=== PATIENT | male | born 1970 | race Caucasian/White ===

== ENCOUNTER 2016-06-02 21:51 | Inpatient (IN) | payer MEDICARE ==
[~2016-06-02] VITALS: Ht 190.5 cm; Wt 69.9 kg
[2016-06-02] MEDS ORDERED: ACETAMINOPHEN ES 500 MG TABLET PO ONE (22:30)
[2016-06-02] MEDS ORDERED: LEVOFLOXACIN 750MG/D5W 150 ML IV ONE ×2 (22:30→22:54)
[2016-06-02] MEDS ORDERED: IV NORMAL SALINE 1000 ML BAG IV ONE (22:30)
[2016-06-02] MEDS ORDERED: CEFT1VIA15 IV (22:50)
[2016-06-02] MEDS ORDERED: FURO-152 PO (22:50)
[2016-06-02] MEDS ORDERED: APIX2.5T PO (22:50)
[2016-06-02] MEDS ORDERED: ACET325T53 PO (22:50)
[2016-06-02] MEDS ORDERED: METO25TA6 PO (22:50)
[2016-06-02] MEDS ORDERED: AMIO200T2 PO (22:50)
[2016-06-02] MEDS ORDERED: ACETAMINOPHEN ES 500 MG TABLET ONE (22:53)
[2016-06-02 23:10] LABS: MEAN CORPUSCULAR VOLUME 78.5 fL (82.0-92.0)
[2016-06-02 23:11] LABS: LACTIC ACID 1.1 mmol/L (0.4-2.0); TROPONIN I 0.077 ng/mL (0.00-0.056)
[2016-06-02] MEDS ORDERED: ACET325C PO (23:11)
[2016-06-02] MEDS ORDERED: ASCO-340 PO (23:11)
[2016-06-02] MEDS ORDERED: VANC125C11 PO (23:11)
[2016-06-02] MEDS ORDERED: ZINC220C8 PO (23:11)
[2016-06-02] MEDS ORDERED: MULT-30 PO (23:11)
[2016-06-02] MEDS ORDERED: ASPI81TA31 PO (23:11)
[2016-06-02] MEDS ORDERED: LACT1CAP39 PO (23:11)
[2016-06-02] MEDS ORDERED: AZIT500V13 IV (23:11)
[2016-06-02] MEDS ORDERED: ARGI1POW13 PO (23:11)
[2016-06-02 23:13] LABS: MEAN CORPUSCULAR HEMOGLOBIN 26.2 uug (27.0-31.0); MEAN CORPUSCULAR HGB CONC 33 g/dL (32.0-37.0); PLATELET COUNT (AUTO) 348 K/uL (150-450); RED BLOOD CELL COUNT(AUTO) 2.57 MIL/uL (4.70-6.10); RED CELL DISTRIBUTION WIDTH 18.7 % (11.5-14.5)
[2016-06-02 23:15] LABS: ALBUMIN 1.8 g/dL (3.4-5.0); BILIRUBIN,DIRECT 0.1 mg/dL (0.0-0.2); BILIRUBIN,TOTAL 0.3 mg/dL (0.2-1.0); CALCIUM 7.9 mg/dL (8.5-10.1); CREATININE 1.1 mg/dL (0.6-1.3); POTASSIUM 4.8 mmol/L (3.5-5.1); TOTAL PROTEIN, SERUM 5.6 g/dL (6.4-8.2)
[2016-06-02 23:27] LABS: HEMATOCRIT 20.2 % (40.0-50.0); HEMOGLOBIN 6.7 g/dL (14.0-18.0); WHITE BLOOD COUNT (AUTO) 1.1 K/uL (4.0-11.2)
[2016-06-02 23:34] LABS: LYMPHOCYTES % (MANUAL) 63 % (20-40); MONOCYTES % (MANUAL) 29 % (2-10); NEUTROPHILS % (MANUAL) 6 % (42-75)
[2016-06-02 23:35] LABS: PLATELET ESTIMATE ADEQUATE
[2016-06-02 23:36] LABS: ANISOCYTOSIS 2+
[2016-06-02 23:49] LABS: *OCCULT BLOOD STOOL NEGATIVE (NEGATIVE)
[2016-06-03] VITALS (31 sets, daily range): BP systolic 90–116; BP diastolic 38–75
[2016-06-03] MEDS ORDERED: ENOXAPARIN SODIUM 80 MG/0.8 ML DISP.SYRIN SQ ONE ×2 (00:15→00:32)
[2016-06-03] MEDS ORDERED: ONDANSETRON 4 MG/2 ML VIAL IV PRN (00:30)
[2016-06-03] MEDS ORDERED: ALBUTEROL SULFATE 2.5 MG/ 0.5 ML NEBU NEB PRN (00:30)
--- NOTE | 2016-06-03 00:51 | NUR ---
Pt. admitted to [facility], under care of Dr. Vital Belongs List completed
--- NOTE | 2016-06-03 01:00 | NUR ---
Received patient from ER. Awake, alert, poor historian. Sinus tachycardia on surveillance system monitor. Blood pressure on lower range of normal limits. On 2L O2 nasal cannula, SpO2 WNL. On contact precaution per MD orders for history of C diff. Right upper arm PICC line, infusing bolus normal saline to complete order from ER. Will admit and continue plan of care
[2016-06-03] MEDS ORDERED: CEFEPIME HCL 1 G VIAL ONE (05:52)
[2016-06-03] MEDS ORDERED: CEFEPIME HCL 1 G in IV DEXTROSE 5% 50 ML IV SCH (06:00)
[2016-06-03] MEDS ORDERED: ALBUTEROL SULFATE 2.5 MG/3 ML NEBU NEB PRN (07:15)
[2016-06-03] MEDS: PANTOPRAZOLE SODIUM 40 MG TABLET.DR PO SCH (07:20)
[2016-06-03 07:36] LABS: HEMATOCRIT 21.3 % (40.0-50.0); MEAN CORPUSCULAR HEMOGLOBIN 25.7 uug (27.0-31.0); MEAN CORPUSCULAR HGB CONC 32 g/dL (32.0-37.0); MEAN CORPUSCULAR VOLUME 80.1 fL (82.0-92.0); PLATELET COUNT (AUTO) 330 K/uL (150-450); RED BLOOD CELL COUNT(AUTO) 2.65 MIL/uL (4.70-6.10); RED CELL DISTRIBUTION WIDTH 18.3 % (11.5-14.5)
[2016-06-03 07:39] LABS: HEMOGLOBIN 6.8 g/dL (14.0-18.0)
--- NOTE | 2016-06-03 07:39 | NUR ---
report received from Fanta CALLAHAN, 45 yr old male whoa was admitted 06/02/16 for sepsis. Patient tachycardic up to 137/min sinus tachycardia. o2 on at 1 liter nasal cannula. patient was admitted with low h/h. received 1 unit prbcs repeat h/h showed hb 6.8/ hct 21.3 with wbc 1.0. call to [facility] for critical lab result and tachycardia Addendum: 06/03/16 at 0821 by MARIA ESTHER COOPER RN Amended: Links added.
[2016-06-03 07:58] LABS: ALBUMIN 1.6 g/dL (3.4-5.0); BILIRUBIN,TOTAL 0.3 mg/dL (0.2-1.0); CALCIUM 7.9 mg/dL (8.5-10.1); CREATININE 0.9 mg/dL (0.6-1.3); MAGNESIUM 1.6 mg/dL (1.8-2.4); PHOSPHOROUS 3.7 mg/dL (2.5-4.9); POTASSIUM 4.3 mmol/L (3.5-5.1); TOTAL PROTEIN, SERUM 5.7 g/dL (6.4-8.2)
[2016-06-03 08:40] LABS: THYROID STIMULATING HORMONE 4.143 mIU/mL (0.358-3.740)
[2016-06-03] MEDS ORDERED: VANCOMYCIN IV 1,250 MG in IV DEXTROSE 5% 500 ML IV SCH (09:00)
[2016-06-03] MEDS ORDERED: FUROSEMIDE 20 MG/2 ML VIAL IV PRN (09:00)
[2016-06-03] MEDS ORDERED: Medication Not On Formulary EA (Arginine/Ascorbate Sod/Vite AC (Arginaid Powder) 1 EACH) PO SCH (09:00)
[2016-06-03] MEDS: AMIODARONE HCL 200 MG TABLET PO SCH (09:12)
[2016-06-03 09:25] LABS: ANISOCYTOSIS 2+; EOSINOPHILS % (MANUAL) 12 % (0-8); HYPOCHROMASIA 1+; LYMPHOCYTES % (MANUAL) 76 % (20-40); MONOCYTES % (MANUAL) 4 % (2-10); NEUTROPHILS % (MANUAL) 8 % (42-75); PLATELET ESTIMATE ADEQUATE
[2016-06-03] MEDS: IV NORMAL SALINE 250 ML IV PRN (09:27)
--- NOTE | 2016-06-03 09:34 | NUR ---
ordered 2 units prbcs. 1st unit started at 100ml/hr via HARIS PICC line. Addendum: 06/03/16 at 0952 by MARIA ESTHER COOPER RN Amended: Links added.
--- NOTE | 2016-06-03 11:13 | NUR ---
seen by dr padgett. confirmed atrial flutter vs sinus tachycardia. orders received Addendum: 06/03/16 at 1113 by MARIA ESTHER COOPER RN Amended: Links added.
[2016-06-03] MEDS ORDERED: DIGOXIN 500 MCG/2 ML AMP IV ONE (11:15)
--- NOTE | 2016-06-03 11:19 | NUR ---
digoxin 500mcg given IV for HR 140/min Addendum: 06/03/16 at 1132 by MARIA ESTHER COOPER RN Amended: Links added.
[2016-06-03] MEDS ORDERED: FILGRASTIM 480 MCG/1.6 ML VIAL SUBCUT SCH (11:45)
--- NOTE | 2016-06-03 12:00 | NUR ---
lasix 20 mg given in between blood transfusion Addendum: 06/03/16 at 1348 by MARIA ESTHER COOPER RN Amended: Links added.
--- NOTE | 2016-06-03 12:32 | NUR ---
2nd unit of prbcs started via HARIS AYALA line Addendum: 06/03/16 at 1249 by MARIA ESTHER COOPER RN Amended: Links added.
--- NOTE | 2016-06-03 12:43 | NUR ---
Clinical pharmacy note-Vancomycin dosing per pharmacy Subjective: To start Vancomycin dosing on this patient for febrile neutropenia 45 yo male ht 6' 3'' wt 165 lb Objective: BUN 22 Scr 0.9 WBC 1 Temp 98.4 Assessment/Plan: Will start Vancomycin from 1250 mg IV every 11 hrs to 1250mg IVPB q24h for predicted vancomycin rough level of 15 mcg/ml at steady state. Second dose is due tonight at 2000. Plan to draw trough by 4th dose(not ordered yet). Will monitor renal function closely to adjust the dose if needed. Will follow daily.
--- NOTE | 2016-06-03 12:50 | NUR ---
magnesium sulfate 1gm times 2 bags started for mag level of 1.6 Addendum: 06/03/16 at 1325 by MARIA ESTHER COOPER RN Amended: Links added.
[2016-06-03] MEDS: MAGNESIUM SULFATE/D5W 100 ML IV SCH ×2 (12:52→14:09)
--- NOTE | 2016-06-03 13:07 | NUR ---
family informed of reverse isolation precautions for low wbcs. mother fitz and brother alberto. Addendum: 06/03/16 at 1308 by MARIA ESTHER COOPER RN Amended: Links added. Addendum: 06/03/16 at 1308 by MARIA ESTHER COOPER RN Amended: Links added.
--- NOTE | 2016-06-03 13:41 | NUR ---
seen by dr vazquez. orders received. Addendum: 06/03/16 at 1341 by MARIA ESTHER COOPER RN Amended: Links added.
[2016-06-03] MEDS ORDERED: TBO-FILGRASTIM 300 MCG/0.5 ML SYRINGE SQ ONE (14:00)
[2016-06-03] MEDS ORDERED: FILGRASTIM 300 MCG/ML VIAL SUBCUT ONE (14:00)
[2016-06-03] MEDS: CEFEPIME HCL 2 G in IV DEXTROSE 5% 100 ML IV SCH ×2 (14:10→22:09)
[2016-06-03] MEDS: NORMAL SALINE FLUSH 10 ML DISP.SYRIN IV SCH ×2 (14:13→22:08)
[2016-06-03] MEDS ORDERED: FUROSEMIDE 20 MG/2 ML VIAL IV ONE (15:00)
--- NOTE | 2016-06-03 15:00 | NUR ---
lasix 20mg IV given post blood transfusion Addendum: 06/03/16 at 1524 by MARIA ESTHER COOPER RN Amended: Links added.
--- NOTE | 2016-06-03 15:22 | NUR ---
blood transfusion completed with no untoward reactions Addendum: 06/03/16 at 1523 by MARIA ESTHER COOPER RN Amended: Lyndsey added. Addendum: 06/03/16 at 1524 by MARIA ESTHER COOPER RN Amended: Lyndsey added.
--- NOTE | 2016-06-03 16:00 | NUR ---
to [facility] for vq scan. patient unable to follow instructions. reported to dr vazquez. NM test was cancelled. Addendum: 06/03/16 at 1710 by MARIA ESTHER COOPER RN Amended: Links added. Addendum: 06/03/16 at 1713 by MARIA ESTHER COOPER RN Amended: Links added. Addendum: 06/03/16 at 1716 by MARIA ESTHER COOPER RN Amended: Links added.
[2016-06-03] MEDS: MORPHINE SULFATE 2 MG/1 ML DISP.SYRIN IV PRN (16:40)
--- NOTE | 2016-06-03 16:40 | NUR ---
pm care done. patient unable to turn to sides for back care and linen change. c/o too much pain. but unable to localize pain. Morphine 1 mg given. patient able to cooperate with care thereafter. Addendum: 06/03/16 at 1713 by MARIA ESTHER COOPER RN Amended: Links added. Addendum: 06/03/16 at 1716 by MARIA ESTHER COOPER RN Amended: Links added.
[2016-06-03] MEDS: DIGOXIN 500 MCG/2 ML AMP IV SCH ×2 (16:42→23:24)
--- NOTE | 2016-06-03 16:45 | NUR ---
1715 dose of digoxin given as ordered for HR 142 atrial flutter Addendum: 06/03/16 at 1716 by MARIA ESTHER COOPER RN Amended: Links added.
[2016-06-03] MEDS: BOOST PLUS 237 ML LIQUID (VERY VANILLA) PO SCH (17:30)
[2016-06-03] MEDS ORDERED: Z GUARD REMEDY PASTE 57 GM TUBE TOP PRN (18:00)
--- NOTE | 2016-06-03 19:15 | NUR ---
report given to Fanta RN Addendum: 06/03/16 at 1915 by MARIA ESTHER COOPER RN Amended: Links added.
--- NOTE | 2016-06-03 19:27 | NUR ---
Received patient in no acute distress. No complaints of pain or discomfort. On bedside monitor. Tachycardia to 140. BP stable. 5L O2 via nasal cannula, SpO2 and RR WNL. SCD pumps to BLE. Condom catheter intact, draining. SBAR report received from Huber Prakash. Will continue plan of care.
[2016-06-03] MEDS: VANCOMYCIN IV 1,250 MG in IV DEXTROSE 5% 500 ML IV SCH (19:48)
[2016-06-04] VITALS (52 sets, daily range): BP systolic 86–157; BP diastolic 46–83
[2016-06-04 05:11] LABS: HEMATOCRIT 28.2 % (40.0-50.0); HEMOGLOBIN 9.1 g/dL (14.0-18.0); MEAN CORPUSCULAR HEMOGLOBIN 25.9 uug (27.0-31.0); MEAN CORPUSCULAR HGB CONC 32 g/dL (32.0-37.0); MEAN CORPUSCULAR VOLUME 80.4 fL (82.0-92.0); PLATELET COUNT (AUTO) 360 K/uL (150-450); RED BLOOD CELL COUNT(AUTO) 3.51 MIL/uL (4.70-6.10); RED CELL DISTRIBUTION WIDTH 17.5 % (11.5-14.5)
[2016-06-04 05:19] LABS: ALBUMIN 1.7 g/dL (3.4-5.0); BILIRUBIN,TOTAL 0.4 mg/dL (0.2-1.0); CREATININE 1.1 mg/dL (0.6-1.3); MAGNESIUM 1.8 mg/dL (1.8-2.4); PHOSPHOROUS 3.8 mg/dL (2.5-4.9); POTASSIUM 4.3 mmol/L (3.5-5.1); TOTAL PROTEIN, SERUM 5.5 g/dL (6.4-8.2)
[2016-06-04 05:21] LABS: TROPONIN I 0.065 ng/mL (0.00-0.056)
[2016-06-04 05:22] LABS: LACTIC ACID 0.8 mmol/L (0.4-2.0)
[2016-06-04 05:31] LABS: WHITE BLOOD COUNT (AUTO) 1.4 K/uL (4.0-11.2)
[2016-06-04 05:53] LABS: EOSINOPHILS % (MANUAL) 2 % (0-8); LYMPHOCYTES % (MANUAL) 58 % (20-40); MONOCYTES % (MANUAL) 25 % (2-10); NEUTROPHILS % (MANUAL) 15 % (42-75)
[2016-06-04 05:55] LABS: ANISOCYTOSIS 1+; HYPOCHROMASIA 1+; PLATELET ESTIMATE ADEQUATE
[2016-06-04] MEDS: IV NORMAL SALINE 250 ML IV PRN ×2 (06:00→08:29)
[2016-06-04] MEDS: CEFEPIME HCL 2 G in IV DEXTROSE 5% 100 ML IV SCH ×3 (06:03→21:28)
[2016-06-04] MEDS: NORMAL SALINE FLUSH 10 ML DISP.SYRIN IV SCH ×3 (06:04→21:28)
[2016-06-04] MEDS: VANCOMYCIN IV 1,250 MG in IV DEXTROSE 5% 500 ML IV SCH ×2 (06:42→17:22)
[2016-06-04] MEDS: PANTOPRAZOLE SODIUM 40 MG TABLET.DR PO SCH (06:42)
--- NOTE | 2016-06-04 07:15 | NUR ---
SBAR REPORT RECEIVED FROM [facility]. patient remains tachycardic/ atrial flutter @ 144/min. slept on and off, stable bp, afebrile . had good diuresis past 24hrs. PICC line double lumen via HARIS. Reliafit condom external urinary collection system intact. labs resulted. wbc still low at 1.4. Addendum: 06/04/16 at 0738 by MARIA ESTHER COOPER RN Amended: Links added.
--- NOTE | 2016-06-04 07:15 | NUR ---
No significant events overnight. Tmax 99.2F orally, trending down. Now WNL. Heart rate continues to be elevated, average 140. Blood pressure stable. Titrated O2 to 3L, SpO2 and RR WNL. ReliaFit condom catheter pulled off, replaced. Now intact and draining well. Good urine output. SCD pumps intact. SBAR given to Huber Prakash RN.
[2016-06-04] MEDS: AMIODARONE HCL 200 MG TABLET PO SCH (08:14)
[2016-06-04] MEDS: MORPHINE SULFATE 2 MG/1 ML DISP.SYRIN IV PRN ×2 (08:16→15:20)
[2016-06-04] MEDS: NORMAL SALINE FLUSH 10 ML DISP.SYRIN IV PRN (08:17)
[2016-06-04] MEDS: BOOST PLUS 237 ML LIQUID (VERY VANILLA) PO SCH ×2 (08:51→17:06)
[2016-06-04 10:32] LABS: *BILIRUBIN,URIN NEGATIVE (NEGATIVE); *BLOOD, URINE 3+ (NEGATIVE); *CLARITY,URINE CLOUDY (CLEAR); *COLOR,URINE LIGHT YELLOW (YELLOW); *KETONES,URINE NEGATIVE (NEGATIVE); *PROTEIN,URINE TRACE (NEGATIVE); *UROBILINOGEN,URINE 0.2 E.U./dl (NORMAL); LEUKOCYTE ESTERASE ,URINE NEGATIVE (NEGATIVE); NITRITE, URINE NEGATIVE (NEGATIVE); PH,URINE 6.5 (5.0-8.0); UGLUCOSE NEGATIVE (NEGATIVE)
--- NOTE | 2016-06-04 10:47 | NUR ---
Talked with Dr vazquez re patient's persistent tachycardi,plus this am had hypotensive episodes down to the 80's systolic. Patient 's stutus now CCU/ICU status. Addendum: 06/04/16 at 1047 by MARIA ESTHER COOPER RN Amended: Links added.
[2016-06-04 11:03] LABS: BACTERIA,URINE NONE SEEN /HPF (NONE SEEN); SQUAMOUS EPITHELIAL CELL,UR NONE SEEN /HPF (NONE SEEN); WBC,URINE 0-3 /HPF (0-3)
[2016-06-04] MEDS ORDERED: AMIODARONE HCL IV 150 MG in IV DEXTROSE 5% 100 ML IV ONE (11:30)
--- NOTE | 2016-06-04 11:35 | NUR ---
seen by dr koshkarya. SCHAFER aware of current condition. Addendum: 06/04/16 at 1255 by MARIA ESTHER COOPER RN Amended: Links added.
--- NOTE | 2016-06-04 11:48 | NUR ---
IV cordarone 150mg given as IV bolus for persistent atrial flutter 144/min Addendum: 06/04/16 at 1246 by MARIA ESTHER COOPER RN Amended: Links added. Addendum: 06/04/16 at 1249 by MARIA ESTHER COOPER RN Amended: Links added. Addendum: 06/04/16 at 1255 by MARIA ESTHER COOPER RN Amended: Links added.
[2016-06-04] MEDS: AMIODARONE HCL IV 900 MG in IV DEXTROSE 5% 482 ML IV PRN (12:14)
[2016-06-04] MEDS: FUROSEMIDE 20 MG/2 ML VIAL IV SCH ×2 (12:17→21:27)
--- NOTE | 2016-06-04 12:48 | NUR ---
IV drip cordarone at 1 mg/min initiated HR 142/min atrial flutter Addendum: 06/04/16 at 1249 by MARIAE STHER COOPER RN Amended: Links added. Addendum: 06/04/16 at 1255 by MARIA ESTHER COOPER RN Amended: Links added.
[2016-06-04] MEDS ORDERED: TBO-FILGRASTIM 300 MCG/0.5 ML SYRINGE SQ SCH (13:45)
[2016-06-04] MEDS ORDERED: PHENYLEPHRINE IV 80 MG in IV DEXTROSE 5% 250 ML IV PRN (15:00)
--- NOTE | 2016-06-04 15:00 | NUR ---
ekg rhythm now converting to atrial fib /flutter at 100/min. bp persistently low. down to 40's. neosynephrine drip started at 100mcg/min Addendum: 06/04/16 at 1620 by MARIA ESTHER COOPER RN Amended: Links added.
[2016-06-04] MEDS: TBO-FILGRASTIM 480 MCG/0.8 ML SYRINGE SQ SCH (15:02)
[2016-06-04 15:15] LABS: THYROID STIMULATING HORMONE 1.689 mIU/mL (0.358-3.740)
--- NOTE | 2016-06-04 15:41 | NUR ---
Clinical pharmacy note-Vancomycin dosing per pharmacy Subjective: To continue Vancomycin dosing on this patient for febrile neutropenia 45 yo male ht 6' 3'' wt 165 lb Objective: BUN 21 Scr 1.1 WBC 1.4 Temp 98.9 Assessment/Plan: Continued on Vancomycin from 1250 mg IV every 11 hrs to 1250mg IVPB q24h for predicted vancomycin rough level of 15 mcg/ml at steady state. Third dose given this am at 0700. Trough ordered before 4th scheduled dose, will be due at 1730. Will check trough today and readjust as appropriate. Will monitor renal function closely to adjust the dose if needed. Will follow daily.
[2016-06-04 16:01] LABS: *RHEUMATOID FACTOR SCREEN POSITIVE (NEGATIVE); HIV-1 p24 ANTIGEN REACTIVE (NONREACTIVE); HIV-1/2 ANTIBODY NON REACTIVE (NONREACTIVE)
[2016-06-04 16:08] LABS: *OCCULT BLOOD STOOL NEGATIVE (NEGATIVE)
--- NOTE | 2016-06-04 17:00 | NUR ---
to radiology dept. ct of head, chest, abdomen and pelvis done. Addendum: 06/04/16 at 183 by MARIA ESTHER COOPER RN Amended: Links added. Addendum: 06/04/16 at 183 by MARIA ESTHER COOPER RN Amended: Links added.
[2016-06-04] MEDS ORDERED: IV NORMAL SALINE 250 ML IV ONE (17:24)
[2016-06-04] MEDS ORDERED: IOHEXOL 350 100 ML INFUS..BTL ONE (17:24)
[2016-06-04] MEDS ORDERED: NORMAL SALINE FLUSH 10 ML DISP.SYRIN ONE (17:24)
--- NOTE | 2016-06-04 18:00 | NUR ---
back to room, connected back to vital signs monitor. HR back up to 129/min atrial flutter. bp high. neosynephrine back down to 80mcg/min Addendum: 06/04/16 at 1836 by MARIA ESTHER COOPER RN Amended: Links added.
--- NOTE | 2016-06-04 19:24 | NUR ---
report given to Michi Addendum: 06/04/16 at 1925 by MARIA ESTHER COOPER RN Amended: Links added.
[2016-06-04] MEDS: MUPIROCIN 2% OINT 22 GM TUBE NS SCH (21:28)
[2016-06-05] VITALS (23 sets, daily range): BP systolic 88–125; BP diastolic 46–77
[2016-06-05] MEDS: VANCOMYCIN IV 1,250 MG in IV DEXTROSE 5% 500 ML IV SCH (05:00)
[2016-06-05] MEDS: CEFEPIME HCL 2 G in IV DEXTROSE 5% 100 ML IV SCH ×3 (05:30→21:38)
[2016-06-05] MEDS: NORMAL SALINE FLUSH 10 ML DISP.SYRIN IV SCH ×3 (05:31→21:39)
[2016-06-05] MEDS: PANTOPRAZOLE SODIUM 40 MG TABLET.DR PO SCH (06:23)
--- NOTE | 2016-06-05 07:30 | NUR ---
SBAR report received patient A/A/Ox2 no s/s of acute distress.slight agitation noted.
[2016-06-05] MEDS: BOOST PLUS 237 ML LIQUID (VERY VANILLA) PO SCH ×2 (07:49→16:47)
[2016-06-05] MEDS: NORMAL SALINE FLUSH 10 ML DISP.SYRIN IV PRN (07:50)
[2016-06-05] MEDS: MORPHINE SULFATE 2 MG/1 ML DISP.SYRIN IV PRN ×2 (07:50→12:40)
[2016-06-05] MEDS: FUROSEMIDE 20 MG/2 ML VIAL IV SCH ×2 (08:07→20:52)
[2016-06-05] MEDS: MUPIROCIN 2% OINT 22 GM TUBE NS SCH ×2 (08:08→20:52)
[2016-06-05] MEDS: VANCOMYCIN IV 1 G in PREMIXED 0 EACH IV SCH ×2 (10:24→20:57)
--- NOTE | 2016-06-05 11:19 | NUR ---
Pt.mom at bedside,updated with pt.condition and plan of care.
--- NOTE | 2016-06-05 12:00 | NUR ---
AMIODARONE GTT DONE,PER MANAGER PEST SINDY BERKOWITZ REPORT AMIODARONE GTT ONLY TILL 1200 NOON TODAY. BY ORDER IN eMAR PROTOCOL COMMENTS AMIODARONE GTT 1MG/MIN X 6HR,THEN 0.5 MG/MIN X 18 HR.ON IV SPREDSHEET AMIODARONE STILL CONT.CALL WAS PLACED TO PHARMACY PER Ph:BENNIE SHE NOTED THAT IT WAS STOP BUT NO ANSWER IF I STILL NEED CONT.TO RUN. WAS PAGED FOR CLARIFICATION.
--- NOTE | 2016-06-05 12:17 | NUR ---
Clinical pharmacy note-Vancomycin dosing per pharmacy Subjective: To continue Vancomycin dosing on this patient for febrile neutropenia 45 yo male ht 6' 3'' wt 165 lb Objective: BUN 21 Scr 1.1 WBC 1.4 (06/04) Temp 99.6 Trough 21 (@ 0430 today 06/05 - no dose given at 0500) Assessment/Plan: As 1800 dose was given before originally scheduled trough, trough was retimed to before 5th scheduled dose @ 0500 this early am. Due to supratherapeutic trough, RN held morning dose. Regimen has now been readjusted to 1gm q11hrs with expected new trough of 16. First dose was given today at 1000. Will reorder trough before 4th scheduled dose (not ordered yet), and redose as appropriate. Will monitor renal function closely to adjust the dose if needed. Will follow daily.
[2016-06-05] MEDS: ACETAMINOPHEN 325 MG TABLET PO PRN (12:40)
[2016-06-05 12:42] LABS: HEMOGLOBIN 9.5 g/dL (14.0-18.0)
[2016-06-05 12:45] LABS: HEMATOCRIT 28.8 % (40.0-50.0); MEAN CORPUSCULAR HEMOGLOBIN 26.6 uug (27.0-31.0); MEAN CORPUSCULAR HGB CONC 33 g/dL (32.0-37.0); MEAN CORPUSCULAR VOLUME 80.6 fL (82.0-92.0); RED BLOOD CELL COUNT(AUTO) 3.58 MIL/uL (4.70-6.10); RED CELL DISTRIBUTION WIDTH 17.5 % (11.5-14.5)
[2016-06-05 12:49] LABS: WHITE BLOOD COUNT (AUTO) 1.7 K/uL (4.0-11.2)
[2016-06-05 12:50] LABS: PLATELET COUNT (AUTO) 256 K/uL (150-450)
[2016-06-05 12:58] LABS: ALBUMIN 1.7 g/dL (3.4-5.0); BILIRUBIN,TOTAL 0.3 mg/dL (0.2-1.0); CALCIUM 8.2 mg/dL (8.5-10.1); CREATININE 1.2 mg/dL (0.6-1.3); MAGNESIUM 1.7 mg/dL (1.8-2.4); PHOSPHOROUS 3.7 mg/dL (2.5-4.9); POTASSIUM 4.3 mmol/L (3.5-5.1); TOTAL PROTEIN, SERUM 5.7 g/dL (6.4-8.2)
[2016-06-05] MEDS: TBO-FILGRASTIM 480 MCG/0.8 ML SYRINGE SQ SCH (13:32)
[2016-06-05] MEDS ORDERED: TBO-FILGRASTIM 300 MCG/0.5 ML SYRINGE SQ SCH (13:45)
--- NOTE | 2016-06-05 13:45 | NUR ---
DIDN'T CALL BACK WAS PAGED AGAIN TRUE EXCHANGE.
[2016-06-05 14:15] LABS: BAND % (MANUAL) 1 % (0-10); EOSINOPHILS % (MANUAL) 2 % (0-8); LYMPHOCYTES % (MANUAL) 47 % (20-40); MONOCYTES % (MANUAL) 40 % (2-10); NEUTROPHILS % (MANUAL) 10 % (42-75)
[2016-06-05 14:17] LABS: PLATELET ESTIMATE ADEQUATE
[2016-06-05 14:18] LABS: ANISOCYTOSIS 1+
--- NOTE | 2016-06-05 15:40 | NUR ---
EXCHANGE WAS PAGED AGAIN I WAS TOLD THAT NOT LEARNING STRATEGIST,SAME TIME PHARMACIST BENNIE CALL,TOLD THAT SPOKE WITH ,ASK TO RESTART GTT.TILL WILL SEE ALVERTO.
[2016-06-05] MEDS: AMIODARONE HCL IV 900 MG in IV DEXTROSE 5% 482 ML IV PRN (15:59)
[2016-06-05] MEDS ORDERED: Z GUARD REMEDY PASTE 57 GM TUBE TOP PRN ×2 (17:00→19:45)
[2016-06-05] MEDS: VANCOMYCIN FOR PO/GT/NG USE PO SCH ×2 (17:38→23:29)
[2016-06-05] MEDS: IV NORMAL SALINE 250 ML IV PRN (17:40)
--- NOTE | 2016-06-05 18:23 | NUR ---
pt.was seen by & with new orders.
[2016-06-05] MEDS: MAGNESIUM OXIDE 400 MG TABLET PO SCH ×2 (18:28→23:29)
[2016-06-05] MEDS: DILTIAZEM HCL 60 MG TABLET PO SCH ×2 (18:29→23:28)
--- NOTE | 2016-06-05 20:00 | NUR ---
RECEIVED PT. AWAKE, ALERT W/ PERIODS OF CONFUSION & DISORIENTATION. FOLLOWS TO COMMAND. ON RM AIR W/ O2 SAT OF 98%. PICC LINE INTACT ON HRAIS, PORTS ARE PATENT. NS @ 10CC/HR FOR IVPB MEDS. HAD MODERATE SOFT STOOL, CLEANED & KEPT DRY. CLEANED SACRAL WD., HYDROGEL HANNA APPLIED & COVERED W/ MEPILEX DRSG. REPOSITIONED ON HIS SIDE W/ HOB ELEVATED. NOT IN ANY DISTRESS.
--- NOTE | 2016-06-05 20:30 | NUR ---
DR FERNANDEZ WAS HERE & MADE AWARE OF HR-130S.
[2016-06-05] MEDS: AMIODARONE HCL 200 MG TABLET PO SCH (20:53)
[2016-06-05] MEDS: Z GUARD REMEDY PASTE 57 GM TUBE TOP SCH (20:53)
[2016-06-05] MEDS ORDERED: Z GUARD REMEDY PASTE 57 GM TUBE TOP SCH (21:00)
--- NOTE | 2016-06-05 21:45 | NUR ---
DR. GROVES CALLED & NOTIFIED OF INCREASED HR-139/MIN W/ NO ORDER
[2016-06-06] VITALS (23 sets, daily range): BP systolic 82–133; BP diastolic 26–95
--- NOTE | 2016-06-06 | NUR ---
AFEBRILE,BP STABLE.
--- NOTE | 2016-06-06 03:37 | NUR ---
HR-86/MIN A-FLUTTER VARIABLE BOLCK. NOT IN ANY DISTRESS.
--- NOTE | 2016-06-06 05:18 | NUR ---
AM CARE DONE. HAD SMALL STOOL NOTED. HIBICLENS BATH GIVEN. REPOSITIONED W/ HOB ELEVATED.
[2016-06-06] MEDS: NORMAL SALINE FLUSH 10 ML DISP.SYRIN IV SCH ×3 (05:38→21:42)
[2016-06-06] MEDS: CEFEPIME HCL 2 G in IV DEXTROSE 5% 100 ML IV SCH (05:38)
[2016-06-06] MEDS: VANCOMYCIN FOR PO/GT/NG USE PO SCH ×4 (05:40→23:23)
[2016-06-06] MEDS: MAGNESIUM OXIDE 400 MG TABLET PO SCH ×4 (05:40→23:23)
[2016-06-06] MEDS: DILTIAZEM HCL 60 MG TABLET PO SCH ×4 (05:40→23:23)
[2016-06-06 05:44] LABS: BASOPHILS % (AUTO) 1.2 % (0.0-2.0); EOSINOPHILS # (AUTO) 0.1 K/uL (0.0-0.7); EOSINOPHILS % (AUTO) 2.3 % (0.0-7.0); HEMOGLOBIN 9.8 g/dL (14.0-18.0); LYMPHOCYTES # (AUTO) 0.7 K/uL (0.8-4.8); LYMPHOCYTES % (AUTO) 28.9 % (20.5-51.5); MEAN CORPUSCULAR HEMOGLOBIN 26.4 uug (27.0-31.0); MEAN CORPUSCULAR HGB CONC 33 g/dL (32.0-37.0); MEAN CORPUSCULAR VOLUME 80.8 fL (82.0-92.0); MONOCYTES # (AUTO) 0.8 K/uL (0.1-1.30); NEUTROPHILS # (AUTO) 0.9 K/uL (1.8-8.9); NEUTROPHILS % (AUTO) 35.6 % (38.5-71.5); PLATELET COUNT (AUTO) 258 K/uL (150-450); RED BLOOD CELL COUNT(AUTO) 3.72 MIL/uL (4.70-6.10); RED CELL DISTRIBUTION WIDTH 17.8 % (11.5-14.5); WHITE BLOOD COUNT (AUTO) 2.5 K/uL (4.0-11.2)
[2016-06-06 06:00] LABS: EOSINOPHILS % (MANUAL) 4 % (0-8); LYMPHOCYTES % (MANUAL) 23 % (20-40); MONOCYTES % (MANUAL) 38 % (2-10); NEUTROPHILS % (MANUAL) 35 % (42-75)
[2016-06-06 06:02] LABS: ANISOCYTOSIS 2+; PLATELET ESTIMATE ADEQUATE
[2016-06-06] MEDS: IV NORMAL SALINE 250 ML IV PRN ×2 (06:17→18:40)
[2016-06-06] MEDS: PANTOPRAZOLE SODIUM 40 MG TABLET.DR PO SCH (06:29)
--- NOTE | 2016-06-06 07:15 | NUR ---
report received from Royal. 45 yr old male was admitted on 06/03 for sepsis. patient here as CCU status. still in atrial flutter HR 90/min. bp 90 to 100 systolic. afebrile. on room air. on reverse isolation and on contact isolation for cdiff and mrsa of the nares Addendum: 06/06/16 at 1031 by MARIA ESTHER COOPER RN Amended: Links added.
[2016-06-06] MEDS: FUROSEMIDE 20 MG/2 ML VIAL IV SCH ×2 (08:31→20:48)
[2016-06-06] MEDS: VANCOMYCIN IV 1 G in PREMIXED 0 EACH IV SCH (08:31)
[2016-06-06] MEDS: DIGOXIN 250 MCG TABLET PO SCH (08:32)
[2016-06-06] MEDS: AMIODARONE HCL 200 MG TABLET PO SCH ×2 (08:32→20:49)
[2016-06-06] MEDS: Z GUARD REMEDY PASTE 57 GM TUBE TOP SCH ×2 (08:33→20:50)
[2016-06-06] MEDS: MUPIROCIN 2% OINT 22 GM TUBE NS SCH ×2 (08:33→20:49)
[2016-06-06] MEDS: BOOST PLUS 237 ML LIQUID (VERY VANILLA) PO SCH ×2 (08:34→17:31)
[2016-06-06] MEDS: MORPHINE SULFATE 2 MG/1 ML DISP.SYRIN IV PRN (12:19)
--- NOTE | 2016-06-06 13:43 | NUR ---
WOUND CARE CONSULT: PT PRESENTS WITH CLOSED INCISIONS TO ABDOMEN AND CHEST, NO DRAINAGE. PT NOTED TO HAVE SACRAL ULCER WHICH IS UNSTAGEABLE, PRESENT ON ADMISSION. PT ON FIRST STEP MATTRESS. PT TO BE TURNED AND REPOSITIONED EVERY 2 HRS PT CONDITION PERMITS, HEELS FLOATED. ALL SKIN PROTECTION MEASURES IN PLACE. WOUND CARE AND SKIN PROTECTION DISCUSSED WITH NURSING STAFF. RECOMMEND SURGICAL CONSULT. WILL SEE PRN. SCHAFER IN AGREEMENT WITH PLAN OF CARE. Addendum: 06/06/16 at 1345 by JENNIE OLMOS RN Amended: Links added.
--- NOTE | 2016-06-06 13:55 | NUR ---
Clinical pharmacy note-Vancomycin dosing per pharmacy Subjective: To continue Vancomycin dosing on this patient for febrile neutropenia 45 yo male ht 6' 3'' wt 165 lb Objective: BUN 22 Scr 1.2 WBC 2.5 Temp 97.8 Assessment/Plan: Will continue same dose of 1gm IVPB q11hr for today. Third dose was given today at 0800. Plan to check vancomycin trough level today at 1930. Pharmacy shall review vancomycin trough level when available & adjust the dose if needed. Will monitor renal function closely to adjust the dose if needed. Will follow daily. Addendum: 06/06/16 at 1936 by STARR ROLON ADM VANCOMYCIN TROUGH 24. HOLD VANCOMYCIN RANDOM LEVEL ORDERED FOR THE MORNING
--- NOTE | 2016-06-06 14:01 | NUR ---
talked to dr vazquez re: rashes all over back and arms. orders received Addendum: 06/06/16 at 1402 by MARIA ESTHER COOPER RN Amended: Links added.
[2016-06-06 14:12] LABS: *IMMUNOGLOBULIN G, SERUM 838 mg/dL (700-1600); IMMUNOGLOBULIN A, SERUM 89 mg/dL (90-386); IMMUNOGLOBULIN M, SERUM 310 mg/dL (20-172)
[2016-06-06] MEDS: TBO-FILGRASTIM 480 MCG/0.8 ML SYRINGE SQ SCH (14:47)
[2016-06-06] MEDS: methylPREDNISolone SOD SUCC 40 MG/ML VIAL IV SCH ×2 (14:48→20:48)
[2016-06-06] MEDS: diphenhydrAMINE 50 MG/1 ML VIAL IV PRN (14:48)
[2016-06-06 15:08] LABS: A/G RATIO 0.7 (0.7-1.7); ALBUMIN 1.8 g/dL (2.9-4.4); ALPHA-1-GLOBULIN 0.4 g/dL (0.0-0.4); ALPHA-2-GLOBULIN 0.8 g/dL (0.4-1.0); BETA GLOBULIN 0.5 g/dL (0.7-1.3); GLOBULIN, TOTAL 2.7 g/dL (2.2-3.9); HCV AB <0.1 s/co ratio (0.0-0.9); HEPATITIS B SURFACE AB Reactive (.); HEPATITIS B SURFACE AG Negative (Negative); M-SPIKE Not Observed g/dL (Not Observed)
--- NOTE | 2016-06-06 15:16 | NUR ---
medicated with solumedrol and benadryl for skin rashes. Addendum: 06/06/16 at 1516 by MARIA ESTHER COOPER RN Amended: Links added.
[2016-06-06 17:10] LABS: *ANTI-SCLERODERMA-70 AB <0.2 AI (0.0-0.9); *RNP ANTIBODIES <0.2 AI (0.0-0.9); *SJOGREN'S ANTI-SS-A <0.2 AI (0.0-0.9); *SJOGREN'S ANTI-SS-B <0.2 AI (0.0-0.9); *SMITH ANTIBODIES <0.2 AI (0.0-0.9); ANTI-DNA(DS) AB, QN <1 IU/mL (0-9); ANTI-NUCLEAR AB DIRECT Negative (Negative)
[2016-06-06] MEDS: FOLIC ACID 1 MG TABLET PO SCH (17:31)
--- NOTE | 2016-06-06 18:30 | NUR ---
unable to draw from PICC line. vanco trough drawn peripheral stick.per lab. Pharmacy advised wait for result before hanging 1900 dose. Addendum: 06/06/16 at 1854 by MARIA ESTHER COOPER RN Amended: Links added.
--- NOTE | 2016-06-06 19:28 | NUR ---
report given to Royal Addendum: 06/06/16 at 1928 by MARIA ESTHER COOPER RN Amended: Links added.
[2016-06-06] MEDS: LORATADINE 10 MG TABLET PO SCH (20:00)
--- NOTE | 2016-06-06 20:00 | NUR ---
RECEIVED PT DROWSY BUT AROUSABLE. ON RM AIR W/ O2 SAT OF 97%. NS @ 10CC/HR VIA PICC LINE ON HARIS FOR IVPB MEDS., OTHER PORT IS PATENT. C-SCOPE A-FLUTTER HR-100/MIN. REPOSITIONED ON HIS SIDE W/ HOB ELEVATED. NOT IN ANY DISTRESS.
--- NOTE | 2016-06-06 21:00 | NUR ---
REMOVED SUTURES ON ABD. INC. ORDERED. HS CARE DONE.
--- NOTE | 2016-06-06 22:30 | NUR ---
DR NUÑEZ WAS HERE , SEEN PTS SACRAL DECUBITUS W/ ORDER.
[2016-06-07] VITALS (24 sets, daily range): BP systolic 90–113; BP diastolic 44–71
[2016-06-07] MEDS: diphenhydrAMINE 50 MG/1 ML VIAL IV PRN ×3 (01:01→20:09)
--- NOTE | 2016-06-07 04:00 | NUR ---
AM CARE DONE. HIBICLENS BATH GIVEN. REPOSITIONED W/ HOB ELEVATED. NOT IN ANY DISTRESS.
[2016-06-07 05:06] LABS: HEMOGLOBIN 10.4 g/dL (14.0-18.0); LYMPHOCYTES # (AUTO) 0.7 K/uL (0.8-4.8); WHITE BLOOD COUNT (AUTO) 8.3 K/uL (4.0-11.2)
[2016-06-07 05:14] LABS: BASOPHILS % (AUTO) 0.6 % (0.0-2.0); HEMATOCRIT 31.8 % (40.0-50.0); LYMPHOCYTES % (AUTO) 8.4 % (20.5-51.5); MEAN CORPUSCULAR HEMOGLOBIN 26.3 uug (27.0-31.0); MEAN CORPUSCULAR HGB CONC 33 g/dL (32.0-37.0); MEAN CORPUSCULAR VOLUME 79.8 fL (82.0-92.0); MONOCYTES # (AUTO) 0.8 K/uL (0.1-1.30); NEUTROPHILS # (AUTO) 6.8 K/uL (1.8-8.9); PLATELET COUNT (AUTO) 298 K/uL (150-450); RED BLOOD CELL COUNT(AUTO) 3.98 MIL/uL (4.70-6.10); RED CELL DISTRIBUTION WIDTH 17.7 % (11.5-14.5)
[2016-06-07 05:30] LABS: ALBUMIN 1.9 g/dL (3.4-5.0); BILIRUBIN,TOTAL 0.3 mg/dL (0.2-1.0); CALCIUM 8.7 mg/dL (8.5-10.1); CREATININE 1.2 mg/dL (0.6-1.3); PHOSPHOROUS 3.6 mg/dL (2.5-4.9); POTASSIUM 4.5 mmol/L (3.5-5.1); TOTAL PROTEIN, SERUM 6.3 g/dL (6.4-8.2)
[2016-06-07 05:35] LABS: BAND % (MANUAL) 7 % (0-10); EOSINOPHILS % (MANUAL) 1 % (0-8); LYMPHOCYTES % (MANUAL) 9 % (20-40); MONOCYTES % (MANUAL) 8 % (2-10); NEUTROPHILS % (MANUAL) 75 % (42-75)
[2016-06-07 05:36] LABS: ANISOCYTOSIS 1+; PLATELET ESTIMATE ADEQUATE
[2016-06-07] MEDS: NORMAL SALINE FLUSH 10 ML DISP.SYRIN IV SCH ×3 (05:42→21:22)
[2016-06-07] MEDS: MAGNESIUM OXIDE 400 MG TABLET PO SCH ×3 (05:43→17:36)
[2016-06-07] MEDS: DILTIAZEM HCL 60 MG TABLET PO SCH ×3 (05:43→17:36)
[2016-06-07] MEDS: VANCOMYCIN FOR PO/GT/NG USE PO SCH ×3 (05:44→17:36)
--- NOTE | 2016-06-07 06:00 | NUR ---
RESTING QUITELY. V/S STABLE.
[2016-06-07] MEDS: PANTOPRAZOLE SODIUM 40 MG TABLET.DR PO SCH (06:39)
[2016-06-07] MEDS ORDERED: LIDOCAINE 1%-EPI 1:100,000 20 ML VIAL TP PRN (07:00)
--- NOTE | 2016-06-07 07:30 | NUR ---
RECIEVED PT LYING IN BED, AWAKE, ALERT AND ORIENTEDX3. VERY PLEASANT AND COOPERATIVE. DENIES ANY C/O PAIN.
[2016-06-07] MEDS: BOOST PLUS 237 ML LIQUID (VERY VANILLA) PO SCH ×2 (08:09→17:33)
[2016-06-07] MEDS: FUROSEMIDE 20 MG/2 ML VIAL IV SCH ×2 (08:13→21:21)
[2016-06-07] MEDS: LORATADINE 10 MG TABLET PO SCH (08:13)
[2016-06-07] MEDS: methylPREDNISolone SOD SUCC 40 MG/ML VIAL IV SCH ×2 (08:13→21:18)
[2016-06-07] MEDS: AMIODARONE HCL 200 MG TABLET PO SCH ×2 (08:14→21:17)
[2016-06-07] MEDS: DIGOXIN 250 MCG TABLET PO SCH (08:14)
[2016-06-07] MEDS: FOLIC ACID 1 MG TABLET PO SCH (08:14)
[2016-06-07] MEDS: Z GUARD REMEDY PASTE 57 GM TUBE TOP SCH ×2 (08:17→21:22)
[2016-06-07] MEDS: MUPIROCIN 2% OINT 22 GM TUBE NS SCH ×2 (10:54→21:17)
--- NOTE | 2016-06-07 11:11 | NUR ---
Clinical pharmacy note-Vancomycin dosing per pharmacy Subjective: To continue Vancomycin dosing on this patient for febrile neutropenia 45 yo male ht 6' 3'' wt 165 lb Objective: BUN 26 Scr 1.2 WBC 8.3 Temp 98.2 Vancomycin random level: 16 (with am labs-last dose was vancomycin 1gm IVPB was given on 06/06 at 0800) Assessment/Plan: Due to elevated vancomycin trough level yesterday, will betancourt by level today. Since vancomycin trough level is 16 mcg/ml, will give vancomycin 1gm IVPB x1 today at 1800. Plan to draw vancomycin random level in am (with am labs). Will dsoe by level in am if needed. Will follow daily.
--- NOTE | 2016-06-07 11:30 | NUR ---
PT HAS 1 LARGE AMOUNT OF BROWN PASTRY BM. PT DOES NOT MAKE EFFORTS OF TELLING THAT HE WANTED TO HAVE A BM.
--- NOTE | 2016-06-07 12:00 | NUR ---
CARDIZEM MEDICATION PO HELD . SBP IS 97/44. PT IS PERSISTENTENTY ON ATRIAL FLUTTER 2 TO 1 IN THE 120 B/MIN. NO C/O CHEST PAIN . PT APPEARS TO BE A LITTLE ANXIOUS.
--- NOTE | 2016-06-07 12:30 | NUR ---
MOTHER AT THE BEDSIDE. SIGNED CONSENT FOR DEBRIDEMENT OF DECUBITUS. REPOSITION PT SIDE TO SIDE AT FREQUENT INTERVALS.
[2016-06-07] MEDS ORDERED: SILVER NITRATE APPLICATOR STICK EACH TP PRN (13:30)
[2016-06-07] MEDS ORDERED: TBO-FILGRASTIM 480 MCG/0.8 ML SYRINGE SQ SCH (14:00)
--- NOTE | 2016-06-07 14:00 | NUR ---
NOTIFIED DR ENRIQUE ABOUT PT'S HR. NO ORDERS MADE.
[2016-06-07] MEDS: ACETAMINOPHEN 325 MG TABLET PO PRN (15:24)
[2016-06-07] MEDS ORDERED: VANCOMYCIN IV 1 G in PREMIXED 0 EACH IV ONE (18:00)
--- NOTE | 2016-06-07 18:50 | NUR ---
SEEN AND EXAMINED BY ELDA, NO NEW ORDERS MADE. NO APPARENT DISTRESS NOTED.
[2016-06-07] MEDS: MORPHINE SULFATE 2 MG/1 ML DISP.SYRIN IV PRN (20:09)
--- NOTE | 2016-06-07 20:15 | NUR ---
Time-Out called for sacral wound debridement. Dr Aparicio at bedside. Patient premedicated with ordered: Morphine & Benadryl IVP. Procedure without complications.
[2016-06-07] MEDS: DOXYCYCLINE HYCLATE 100 MG TABLET PO SCH (21:17)
[2016-06-08] VITALS (24 sets, daily range): BP systolic 103–128; BP diastolic 47–94
[2016-06-08] MEDS: MAGNESIUM OXIDE 400 MG TABLET PO SCH ×4 (00:45→17:07)
[2016-06-08] MEDS: DILTIAZEM HCL 60 MG TABLET PO SCH ×4 (00:46→17:08)
[2016-06-08 05:21] LABS: ALBUMIN 2.2 g/dL (3.4-5.0); BILIRUBIN,TOTAL 0.2 mg/dL (0.2-1.0); CREATININE 1.1 mg/dL (0.6-1.3); MAGNESIUM 2.3 mg/dL (1.8-2.4); PHOSPHOROUS 3.7 mg/dL (2.5-4.9); POTASSIUM 4.8 mmol/L (3.5-5.1); TOTAL PROTEIN, SERUM 6.5 g/dL (6.4-8.2)
[2016-06-08 05:30] LABS: BASOPHILS # (AUTO) 0.1 K/uL (0.0-0.2); BASOPHILS % (AUTO) 0.4 % (0.0-2.0); HEMOGLOBIN 9.9 g/dL (14.0-18.0); LYMPHOCYTES # (AUTO) 0.9 K/uL (0.8-4.8); LYMPHOCYTES % (AUTO) 5.6 % (20.5-51.5); MEAN CORPUSCULAR HEMOGLOBIN 26.1 uug (27.0-31.0); MEAN CORPUSCULAR HGB CONC 33 g/dL (32.0-37.0); MEAN CORPUSCULAR VOLUME 79.4 fL (82.0-92.0); MONOCYTES # (AUTO) 0.5 K/uL (0.1-1.30); MONOCYTES % (AUTO) 2.8 % (0.0-11.0); NEUTROPHILS % (AUTO) 91.2 % (38.5-71.5); PLATELET COUNT (AUTO) 276 K/uL (150-450); RED BLOOD CELL COUNT(AUTO) 3.78 MIL/uL (4.70-6.10); RED CELL DISTRIBUTION WIDTH 17.9 % (11.5-14.5); WHITE BLOOD COUNT (AUTO) 16.5 K/uL (4.0-11.2)
[2016-06-08 05:40] LABS: BAND % (MANUAL) 10 % (0-10); LYMPHOCYTES % (MANUAL) 12 % (20-40); MONOCYTES % (MANUAL) 4 % (2-10); NEUTROPHILS % (MANUAL) 74 % (42-75)
[2016-06-08 05:41] LABS: ANISOCYTOSIS 1+; PLATELET ESTIMATE ADEQUATE
[2016-06-08] MEDS: PANTOPRAZOLE SODIUM 40 MG TABLET.DR PO SCH (06:35)
[2016-06-08] MEDS: NORMAL SALINE FLUSH 10 ML DISP.SYRIN IV SCH ×3 (06:36→21:14)
--- NOTE | 2016-06-08 07:30 | NUR ---
RECIEVED PT LYING IN BED, AWAKE. ALERT AND ORIENTED TO HIS NAME AND PLACE. SPEECH IS SOMEWHAT CONVULUTED, BUT PT IS VERY COOPERATIVE. DENIES ANY PAIN AT THIS TIME. HR IS STILL ON RAPID 1 IS TO 2 ATRIAL FLUTTER IN THE 120'S. NO CHEST PAINS NOTED AND SBP IS MAINTAINED WELL. NO APPARENT DISTRESS NOTED. PT IS ABLE TO MOVE ALL EXTREMETIES BUT NEEDS MORE ENCOURAGEMENT.
[2016-06-08] MEDS: BOOST PLUS 237 ML LIQUID (VERY VANILLA) PO SCH ×2 (08:01→16:39)
[2016-06-08] MEDS: methylPREDNISolone SOD SUCC 40 MG/ML VIAL IV SCH ×2 (08:43→21:13)
[2016-06-08] MEDS: FOLIC ACID 1 MG TABLET PO SCH (08:43)
[2016-06-08] MEDS: FUROSEMIDE 20 MG/2 ML VIAL IV SCH (08:43)
[2016-06-08] MEDS: DIGOXIN 250 MCG TABLET PO SCH (08:43)
[2016-06-08] MEDS: DOXYCYCLINE HYCLATE 100 MG TABLET PO SCH ×2 (08:43→21:14)
[2016-06-08] MEDS: AMIODARONE HCL 200 MG TABLET PO SCH ×2 (08:44→21:14)
[2016-06-08] MEDS: LORATADINE 10 MG TABLET PO SCH (08:44)
[2016-06-08] MEDS: Z GUARD REMEDY PASTE 57 GM TUBE TOP SCH ×2 (08:47→21:14)
[2016-06-08 09:07] LABS: *BANDS 4 % (Not Estab.); *BASOS 2 % (.); *BASOS,ABSOLUTE 0.2 x10E3/uL (0.0-0.2); *COMMENTS Note: (.); *EOS 0 % (.); *HCT 31.6 % (37.5-51.0); *HGB 10.4 g/dL (12.6-17.7); *LYMPHOCYTES 9 % (.); *LYMPHOCYTES ABSOLUTE 0.7 x10E3/uL (0.7-3.1); *MCH 26.5 pg (26.6-33.0); *MCHC 32.9 g/dL (31.5-35.7); *MCV 80 fL (79-97); *MONOCYTES 5 % (.); *MONOCYTES ABSOLUTE 0.4 x10E3/uL (0.1-0.9); *MYELOCYTES 1 % (0 - 0); *NEUTROPHILS 79 % (.); *NEUTROPHILS ABSOLUTE 6.9 x10E3/uL (1.4-7.0); *PLT 281 x10E3/uL (150-379); *RBC 3.93 x10E6/uL (4.14-5.80); *RDW 17.5 % (12.3-15.4); *WBC 8.3 x10E3/uL (3.4-10.8)
[2016-06-08] MEDS: MUPIROCIN 2% OINT 22 GM TUBE NS SCH ×2 (09:43→21:00)
--- NOTE | 2016-06-08 11:00 | NUR ---
PT HAS A HUGE FORMED BROWN BM. PHYSICAL THERAPIST EVALUATION DONE AT THE BEDSIDE. PT ABLE TO DANGLE UP IN BED WITH 2 EOPLE ASSIST, ALSO ABLE TO STAND UP WITH A WALKER AND MADE A FEW STEPS SIDE BY SIDE. TOLERATED WELL. NO DIZZINESS NOTED. HR STILL FAST RATE ATRIAL FLUTTER IN THE 120-126B/MIN. BUT TOLERATING WELL.
--- NOTE | 2016-06-08 12:30 | NUR ---
FAMILY AT THE BEDSIDE. PT ATE GOOD LUNCH. REQUESTED A COPY OF THE BNE MARROW BIOPSY RESULT AT [facility] PER DR GROVES REQUEST. WILL TAKE 1 OR 2 DAYS TO PROCESS. COPY OF RQUEST FORM IN THE CHART.
[2016-06-08 14:13] LABS: *HELPER T-LYMPH MARKR(CD4)ABSO 298 /uL (359-1519); *HELPER T-LYNPH MARKER CD4)% 42.6 % (30.8-58.5)
--- NOTE | 2016-06-08 14:50 | NUR ---
PT IS BEDRESTING BUT APPEARS VERY TIGHT AND ANXIOUS AND UNCOMFORTABLE. HR IS PERSISTENTLY FAST IN THE 115-120B/MIN. MEDICATED WITH MORPHINE 1MG SLOW IVP STANDARD ORDER.
[2016-06-08] MEDS: MORPHINE SULFATE 2 MG/1 ML DISP.SYRIN IV PRN (14:59)
[2016-06-08] MEDS: DILTIAZEM HCL CD 240 MG CAP.SR.24H PO SCH (21:14)
[2016-06-09] VITALS (10 sets, daily range): BP systolic 96–126; BP diastolic 67–90
[2016-06-09] MEDS: MAGNESIUM OXIDE 400 MG TABLET PO SCH ×5 (00:01→23:56)
[2016-06-09 05:16] LABS: ALBUMIN 2.4 g/dL (3.4-5.0); BASOPHILS % (AUTO) 0.1 % (0.0-2.0); BILIRUBIN,TOTAL 0.2 mg/dL (0.2-1.0); CALCIUM 8.9 mg/dL (8.5-10.1); CREATININE 1.1 mg/dL (0.6-1.3); HEMATOCRIT 29.8 % (40.0-50.0); HEMOGLOBIN 10.2 g/dL (14.0-18.0); LYMPHOCYTES # (AUTO) 0.8 K/uL (0.8-4.8); LYMPHOCYTES % (AUTO) 2.8 % (20.5-51.5); MEAN CORPUSCULAR HEMOGLOBIN 27.1 uug (27.0-31.0); MEAN CORPUSCULAR HGB CONC 34 g/dL (32.0-37.0); MEAN CORPUSCULAR VOLUME 79.4 fL (82.0-92.0); MONOCYTES # (AUTO) 0.3 K/uL (0.1-1.30); MONOCYTES % (AUTO) 0.9 % (0.0-11.0); NEUTROPHILS % (AUTO) 96.2 % (38.5-71.5); PHOSPHOROUS 3.4 mg/dL (2.5-4.9); PLATELET COUNT (AUTO) 368 K/uL (150-450); POTASSIUM 5.5 mmol/L (3.5-5.1); RED BLOOD CELL COUNT(AUTO) 3.76 MIL/uL (4.70-6.10); RED CELL DISTRIBUTION WIDTH 17.4 % (11.5-14.5); TOTAL PROTEIN, SERUM 6.7 g/dL (6.4-8.2); WHITE BLOOD COUNT (AUTO) 28.1 K/uL (4.0-11.2)
[2016-06-09] MEDS: NORMAL SALINE FLUSH 10 ML DISP.SYRIN IV SCH ×3 (05:25→20:57)
[2016-06-09] MEDS: PANTOPRAZOLE SODIUM 40 MG TABLET.DR PO SCH (07:10)
--- NOTE | 2016-06-09 07:30 | NUR ---
PT FOUND IN NAD; VSS. PT IS A/OX 2; PT IS ON CARDIAC MONITORING SHOWING A-FLUTTER; ORDERS RECEIVED FOR TELEMETRY STATUS. PT SPO2 >93%; CONDOM CATH IN PLACE; LEAKING AND RE-SECURED. PT HAS A SACRAL PRESSURE ULCER; DRAINING SCANT SEROUS DRAINAGE; MEPILEX IN PLACE. PT HAS A HEALING MIDSTERNAL INCISION AND A SMALL LT UPPER ABD. INCISION BOTH ARE CLEAN AND OPEN TO AIR. SCD'S IN BLE; PT ON AIR MATTRESS
[2016-06-09] MEDS: methylPREDNISolone SOD SUCC 40 MG/ML VIAL IV SCH (08:29)
[2016-06-09] MEDS: DIGOXIN 250 MCG TABLET PO SCH (08:30)
[2016-06-09] MEDS: Z GUARD REMEDY PASTE 57 GM TUBE TOP SCH ×2 (08:30→20:56)
[2016-06-09] MEDS: AMIODARONE HCL 200 MG TABLET PO SCH ×2 (08:30→20:32)
[2016-06-09] MEDS: FOLIC ACID 1 MG TABLET PO SCH (08:30)
[2016-06-09] MEDS: LORATADINE 10 MG TABLET PO SCH (08:32)
[2016-06-09] MEDS: DILTIAZEM HCL CD 240 MG CAP.SR.24H PO SCH (08:35)
[2016-06-09] MEDS: DOXYCYCLINE HYCLATE 100 MG TABLET PO SCH (08:38)
[2016-06-09] MEDS: BOOST PLUS 237 ML LIQUID (VERY VANILLA) PO SCH ×2 (08:38→17:54)
[2016-06-09] MEDS: MUPIROCIN 2% OINT 22 GM TUBE NS SCH (08:39)
[2016-06-09] MEDS ORDERED: FUROSEMIDE 20 MG/2 ML VIAL IV SCH (09:00)
[2016-06-09] MEDS ORDERED: SODIUM POLYSTYRENE SULFONATE 15 G/60 ML LIQUID UDC PO ONE (10:45)
--- NOTE | 2016-06-09 14:40 | NUR ---
INSERTED FLEXISEAL; PT WAS GIVEN KAYEXALATE FOR HYPERKALEMIA; PT TOLERATED WELL THERES A GOOD SEAL ON THE CONDOM CATH; WILL HOLD OFF ON FC FOR NOW; NOTIFIED
--- NOTE | 2016-06-09 16:30 | NUR ---
received from CCU per bed awake alert oriented x 2, placed on tele HR 111, on room air, isolation for c diff maintained, right upper arm PICC line noted, condom cath draining yellowish urine in the bag but leaking- will replace, flexiseal bag empty at this time, on first step mattress, call lite within reach
--- NOTE | 2016-06-09 17:00 | NUR ---
kept clean and dry- new condom cath placed, repositioned with heels offloaded with pillows, tele a flutter @ 114, call lite within reach, monitored closely.
--- NOTE | 2016-06-09 18:03 | NUR ---
no distress noted, has good appetite, all needs attended and met, denies of pain, condom cath in place, still no stools noted
[2016-06-09] MEDS: METOPROLOL TARTRATE 25 MG TABLET PO SCH (20:32)
[2016-06-09] MEDS ORDERED: DOXYCYCLINE HYCLATE IV 100 MG in IV DEXTROSE 5% 100 ML IV SCH (21:00)
[2016-06-10 05:40] VITALS: BP 116/77
[2016-06-10] MEDS: MAGNESIUM OXIDE 400 MG TABLET PO SCH ×3 (06:05→17:48)
[2016-06-10] MEDS: PANTOPRAZOLE SODIUM 40 MG TABLET.DR PO SCH (06:06)
[2016-06-10] MEDS: NORMAL SALINE FLUSH 10 ML DISP.SYRIN IV SCH ×3 (06:07→22:00)
[2016-06-10 07:31] LABS: CALCIUM 8.7 mg/dL (8.5-10.1); MAGNESIUM 2.1 mg/dL (1.8-2.4); PHOSPHOROUS 3.3 mg/dL (2.5-4.9); POTASSIUM 5.3 mmol/L (3.5-5.1)
--- NOTE | 2016-06-10 08:00 | NUR ---
awake alert oriented x 2, head of bed elevated, aspiration precautions observed, tele a flutter 70's, kept comfortable. breakfast served and with good appetite- asked for second serving, right upper arm PICC line in place and patent, needs attended, safety measures maintained
[2016-06-10] MEDS: DIGOXIN 250 MCG TABLET PO SCH (08:34)
[2016-06-10] MEDS: LORATADINE 10 MG TABLET PO SCH (08:34)
[2016-06-10] MEDS: FOLIC ACID 1 MG TABLET PO SCH (08:34)
[2016-06-10] MEDS: AMIODARONE HCL 200 MG TABLET PO SCH ×2 (08:34→20:28)
[2016-06-10] MEDS: DOXYCYCLINE HYCLATE IV 100 MG in IV DEXTROSE 5% 100 ML IV SCH ×2 (08:35→20:53)
[2016-06-10] MEDS: METOPROLOL TARTRATE 25 MG TABLET PO SCH ×2 (08:35→20:28)
[2016-06-10] MEDS: BOOST PLUS 237 ML LIQUID (VERY VANILLA) PO SCH ×2 (08:36→17:49)
[2016-06-10] MEDS: DILTIAZEM HCL CD 240 MG CAP.SR.24H PO SCH (09:03)
[2016-06-10] MEDS: Z GUARD REMEDY PASTE 57 GM TUBE TOP SCH ×2 (09:03→20:54)
[2016-06-10 10:00] LABS: BASOPHILS # (AUTO) 0.1 K/uL (0.0-0.2); BASOPHILS % (AUTO) 0.3 % (0.0-2.0); EOSINOPHILS % (AUTO) 0.1 % (0.0-7.0); HEMATOCRIT 31.7 % (40.0-50.0); HEMOGLOBIN 10.5 g/dL (14.0-18.0); LYMPHOCYTES # (AUTO) 0.8 K/uL (0.8-4.8); LYMPHOCYTES % (AUTO) 4.1 % (20.5-51.5); MEAN CORPUSCULAR HEMOGLOBIN 26.3 uug (27.0-31.0); MEAN CORPUSCULAR HGB CONC 33 g/dL (32.0-37.0); MEAN CORPUSCULAR VOLUME 79.2 fL (82.0-92.0); MONOCYTES # (AUTO) 0.3 K/uL (0.1-1.30); MONOCYTES % (AUTO) 1.3 % (0.0-11.0); NEUTROPHILS # (AUTO) 18.3 K/uL (1.8-8.9); NEUTROPHILS % (AUTO) 94.2 % (38.5-71.5); PLATELET COUNT (AUTO) 365 K/uL (150-450); RED CELL DISTRIBUTION WIDTH 17.3 % (11.5-14.5)
[2016-06-10 10:04] LABS: WHITE BLOOD COUNT (AUTO) 19.5 K/uL (4.0-11.2)
--- NOTE | 2016-06-10 11:00 | NUR ---
family here visiting, stool C diff and mrsa nares isolation observed.
[2016-06-10 11:17] LABS: BAND % (MANUAL) 5 % (0-10); LYMPHOCYTES % (MANUAL) 9 % (20-40); METAMYELOCYTES % 10 % (0-1); MONOCYTES % (MANUAL) 2 % (2-10); MYELOCYTES % 5 % (0-0); NEUTROPHILS % (MANUAL) 69 % (42-75)
[2016-06-10 11:18] LABS: ANISOCYTOSIS 1+; PLATELET ESTIMATE NPA
[2016-06-10 11:19] LABS: HYPOCHROMASIA 1+
[2016-06-10 11:45] VITALS: BP 126/73
[2016-06-10 16:00] VITALS: BP 105/67
--- NOTE | 2016-06-10 16:00 | NUR ---
incontinent of large amount of soft formed brownish stool- noted flexiseal (rectal tube) out, washed and kept clean and dry, wound care to sacrum done. Repositioned and kept heels off loaded with pillows. condom cath in place and draining yellow urine
--- NOTE | 2016-06-10 18:37 | NUR ---
resting in bed, denies of pain, no distress noted, all needs attended and met, isolation maintained, call lite within reach
[2016-06-10 19:00] VITALS: BP 94/65
[2016-06-10] MEDS: MORPHINE SULFATE 2 MG/1 ML DISP.SYRIN IV PRN (20:29)
--- NOTE | 2016-06-10 20:30 | NUR ---
received patient awake,alert, oriented,atrial flutter on tele monitor, bp 94/65, hold Apresoline dose as parameter,contact isolation for Cdiff and mrsa positive,patient c/o back pain,restless,Morphine 1 mg iv admin.
--- NOTE | 2016-06-10 22:06 | NUR ---
Hibiclen bath given as orders, turn and reposition,scd ,air mattress,condom cath intact and patent,drainage clear and adequate urine out put.
[2016-06-11 00:49] VITALS: BP 106/74
[2016-06-11] MEDS: MAGNESIUM OXIDE 400 MG TABLET PO SCH ×5 (01:46→23:20)
[2016-06-11 04:00] VITALS: BP 113/84
[2016-06-11] MEDS: PANTOPRAZOLE SODIUM 40 MG TABLET.DR PO SCH (05:59)
[2016-06-11] MEDS: NORMAL SALINE FLUSH 10 ML DISP.SYRIN IV SCH ×3 (06:00→21:23)
--- NOTE | 2016-06-11 06:41 | NUR ---
PICC LINE TO HARIS,NOT WORKING,SALINE LOCK RESTARTED BY RR RN TO LEFT FOREARM WITH ANGIO GA 20.PATIENT STATED" FEEL BETTER TODAY".,REMAINS ATRIAL FLUTTER ,RATE78 BPM.
[2016-06-11 06:59] LABS: MAGNESIUM 2.1 mg/dL (1.8-2.4); PHOSPHOROUS 3.7 mg/dL (2.5-4.9); POTASSIUM 5.3 mmol/L (3.5-5.1)
[2016-06-11 07:07] LABS: BASOPHILS # (AUTO) 0.1 K/uL (0.0-0.2); BASOPHILS % (AUTO) 0.3 % (0.0-2.0); EOSINOPHILS % (AUTO) 0.2 % (0.0-7.0); HEMATOCRIT 35.3 % (40.0-50.0); HEMOGLOBIN 11.9 g/dL (14.0-18.0); LYMPHOCYTES # (AUTO) 0.9 K/uL (0.8-4.8); LYMPHOCYTES % (AUTO) 3.9 % (20.5-51.5); MEAN CORPUSCULAR HGB CONC 34 g/dL (32.0-37.0); MEAN CORPUSCULAR VOLUME 79.8 fL (82.0-92.0); MONOCYTES # (AUTO) 0.3 K/uL (0.1-1.30); MONOCYTES % (AUTO) 1.5 % (0.0-11.0); NEUTROPHILS # (AUTO) 21.5 K/uL (1.8-8.9); NEUTROPHILS % (AUTO) 94.1 % (38.5-71.5); PLATELET COUNT (AUTO) 354 K/uL (150-450); RED CELL DISTRIBUTION WIDTH 17.9 % (11.5-14.5); WHITE BLOOD COUNT (AUTO) 22.8 K/uL (4.0-11.2)
[2016-06-11 07:21] LABS: RED BLOOD CELL COUNT(AUTO) 4.43 MIL/uL (4.70-6.10)
--- NOTE | 2016-06-11 08:00 | NUR ---
awake alert, states "feeling better today", no dyspnea noted, no coughing noted, isolation for c diff and mrsa nares maintained, tele a flutter 95, right upper arm piccline- cannot flush, safety measures maintained, bed alarm on
[2016-06-11] MEDS: LORATADINE 10 MG TABLET PO SCH (08:25)
[2016-06-11] MEDS: DIGOXIN 250 MCG TABLET PO SCH (08:25)
[2016-06-11] MEDS: FOLIC ACID 1 MG TABLET PO SCH (08:25)
[2016-06-11] MEDS: METOPROLOL TARTRATE 25 MG TABLET PO SCH ×3 (08:26→21:22)
[2016-06-11] MEDS: Z GUARD REMEDY PASTE 57 GM TUBE TOP SCH ×2 (08:26→21:23)
[2016-06-11] MEDS: AMIODARONE HCL 200 MG TABLET PO SCH ×3 (08:27→21:21)
[2016-06-11] MEDS: DILTIAZEM HCL CD 240 MG CAP.SR.24H PO SCH ×2 (08:27→18:52)
[2016-06-11] MEDS: BOOST PLUS 237 ML LIQUID (VERY VANILLA) PO SCH ×2 (08:33→17:01)
[2016-06-11] MEDS: DOXYCYCLINE HYCLATE IV 100 MG in IV DEXTROSE 5% 100 ML IV SCH ×2 (08:36→21:22)
[2016-06-11 09:41] LABS: BAND % (MANUAL) 11 % (0-10); LYMPHOCYTES % (MANUAL) 5 % (20-40); METAMYELOCYTES % 9 % (0-1); MONOCYTES % (MANUAL) 3 % (2-10); MYELOCYTES % 5 % (0-0); NEUTROPHILS % (MANUAL) 67 % (42-75)
[2016-06-11 09:43] LABS: ANISOCYTOSIS 1+; HYPOCHROMASIA 1+
[2016-06-11] MEDS ORDERED: SODIUM POLYSTYRENE SULFONATE 15 G/60 ML LIQUID UDC PO ONE (11:00)
--- NOTE | 2016-06-11 11:40 | NUR ---
seen by Dr Eubanks
[2016-06-11] MEDS: VANCOMYCIN FOR PO/GT/NG USE PO SCH ×3 (11:47→23:20)
[2016-06-11 12:00] VITALS: BP 99/72
--- NOTE | 2016-06-11 12:00 | NUR ---
mother here visiting, lunch served- appetite good, aspiration precautions observed, head of bed elevated, no coughing noted
[2016-06-11 16:00] VITALS: BP 124/80
--- NOTE | 2016-06-11 16:58 | NUR ---
BP 116/82 tele a-flutter at 115 -Lopressor 25 mg given po
--- NOTE | 2016-06-11 18:30 | NUR ---
resting, no distress noted, appetite good, no BM yet from Kayexalate given this am, all needs attended and met, safety measures maintained, condom cath draining yellow urine-good output
[2016-06-11 20:09] VITALS: BP 105/71
[2016-06-11] MEDS: MORPHINE SULFATE 2 MG/1 ML DISP.SYRIN IV PRN (22:45)
[2016-06-12 00:37] VITALS: BP 120/71
[2016-06-12 04:00] VITALS: BP 100/64
[2016-06-12] MEDS: NORMAL SALINE FLUSH 10 ML DISP.SYRIN IV SCH ×3 (05:47→21:30)
[2016-06-12] MEDS: MAGNESIUM OXIDE 400 MG TABLET PO SCH ×4 (05:48→23:42)
[2016-06-12] MEDS: VANCOMYCIN FOR PO/GT/NG USE PO SCH ×4 (05:48→23:42)
[2016-06-12] MEDS: PANTOPRAZOLE SODIUM 40 MG TABLET.DR PO SCH (06:05)
--- NOTE | 2016-06-12 06:52 | NUR ---
PT IN BED, SLEPT INTERMITTENTLY DURING SHIFT. C/O LEFT ARM PAIN, MEDICATED WITH MS PRESCRIBED AND WITH HELP. TURNED AND REPOSITIONED. CONDOM CATH INTACT. EMPTIED 1500ML YELLOW CLEAR URINE. ON TELE MONITOR, A FLUTTER. V/S CHECKED AND RECORDED. IN NO ACUTE SIGNS OF DISTRESS. REMAIN ON CONTACT ISOLATION FOR CDIFF AND MRSA NARES. HIBICLENS APPLIED ORDERED. SAFETY MEASURES OBSERVED. CALL LIGHT WITHIN REACH.
[2016-06-12 07:15] LABS: BASOPHILS # (AUTO) 0.1 K/uL (0.0-0.2); BASOPHILS % (AUTO) 0.3 % (0.0-2.0); EOSINOPHILS % (AUTO) 0.2 % (0.0-7.0); HEMATOCRIT 36.4 % (40.0-50.0); HEMOGLOBIN 12.2 g/dL (14.0-18.0); LYMPHOCYTES # (AUTO) 0.8 K/uL (0.8-4.8); MEAN CORPUSCULAR HEMOGLOBIN 26.8 uug (27.0-31.0); MEAN CORPUSCULAR HGB CONC 33 g/dL (32.0-37.0); MEAN CORPUSCULAR VOLUME 80.3 fL (82.0-92.0); MONOCYTES # (AUTO) 0.2 K/uL (0.1-1.30); NEUTROPHILS # (AUTO) 19.9 K/uL (1.8-8.9); NEUTROPHILS % (AUTO) 94.5 % (38.5-71.5); PLATELET COUNT (AUTO) 291 K/uL (150-450); RED BLOOD CELL COUNT(AUTO) 4.54 MIL/uL (4.70-6.10); RED CELL DISTRIBUTION WIDTH 17.9 % (11.5-14.5)
[2016-06-12 07:35] LABS: ALBUMIN 2.4 g/dL (3.4-5.0); BILIRUBIN,TOTAL 0.4 mg/dL (0.2-1.0); CALCIUM 8.8 mg/dL (8.5-10.1); MAGNESIUM 1.8 mg/dL (1.8-2.4); PHOSPHOROUS 3.6 mg/dL (2.5-4.9); TOTAL PROTEIN, SERUM 6.6 g/dL (6.4-8.2)
[2016-06-12 08:39] LABS: BAND % (MANUAL) 10 % (0-10); EOSINOPHILS % (MANUAL) 1 % (0-8); LYMPHOCYTES % (MANUAL) 5 % (20-40); METAMYELOCYTES % 15 % (0-1); MONOCYTES % (MANUAL) 2 % (2-10); MYELOCYTES % 6 % (0-0); NEUTROPHILS % (MANUAL) 61 % (42-75)
[2016-06-12 08:40] LABS: PLATELET ESTIMATE ADEQUATE
[2016-06-12 08:41] LABS: ANISOCYTOSIS 1+; HYPOCHROMASIA 1+
[2016-06-12] MEDS: METOPROLOL TARTRATE 25 MG TABLET PO SCH ×2 (09:00→20:41)
[2016-06-12] MEDS: DILTIAZEM HCL CD 240 MG CAP.SR.24H PO SCH (09:00)
[2016-06-12] MEDS ORDERED: SODIUM POLYSTYRENE SULFONATE 15 G/60 ML LIQUID UDC PO ONE (09:15)
[2016-06-12] MEDS: DOXYCYCLINE HYCLATE IV 100 MG in IV DEXTROSE 5% 100 ML IV SCH ×2 (09:36→21:31)
[2016-06-12] MEDS: LORATADINE 10 MG TABLET PO SCH (09:37)
[2016-06-12] MEDS: FOLIC ACID 1 MG TABLET PO SCH (09:37)
[2016-06-12] MEDS: Z GUARD REMEDY PASTE 57 GM TUBE TOP SCH ×2 (09:38→20:53)
[2016-06-12] MEDS: DIGOXIN 250 MCG TABLET PO SCH (09:40)
[2016-06-12] MEDS: AMIODARONE HCL 200 MG TABLET PO SCH ×2 (09:40→20:53)
[2016-06-12] MEDS: BOOST PLUS 237 ML LIQUID (VERY VANILLA) PO SCH ×2 (09:53→18:11)
--- NOTE | 2016-06-12 10:00 | NUR ---
PICC line occluded. Saline lock infiltrated. Removed. Refused reinsertion.
[2016-06-12 11:07] VITALS: BP 108/68
[2016-06-12] MEDS: ACETAMINOPHEN 325 MG TABLET PO PRN ×2 (12:03→18:24)
--- NOTE | 2016-06-12 14:00 | NUR ---
Assisted out of bed by PT, ambulated to the door. Mother at bedside
[2016-06-12 15:07] VITALS: BP 124/76
--- NOTE | 2016-06-12 18:43 | NUR ---
Wound care done to coccyx. Repositioned comfortably. Afebrile.
--- NOTE | 2016-06-12 18:55 | NUR ---
Called Isaak to recheck PICC line. [place] Supervisor Cereal informed.
--- NOTE | 2016-06-12 19:30 | NUR ---
RECEIVED PATIENT RESTING IN BED, A&O X 3, IN NO ACUTE DISTRESS. CONTACT ISOLATION OBSERVED FOR CDIFF & MRSA. CALL LIGHT WITHIN REACH, BED IN LOW POSITION. WILL CONTINUE TO MONITOR.
[2016-06-12 20:00] VITALS: BP 97/71
[2016-06-12] MEDS: WARFARIN SODIUM 5 MG TABLET PO SCH (20:55)
[2016-06-12] MEDS: MORPHINE SULFATE 2 MG/1 ML DISP.SYRIN IV PRN (21:32)
[2016-06-13 00:02] VITALS: BP 105/76
[2016-06-13 04:00] VITALS: BP 100/68
[2016-06-13] MEDS: MORPHINE SULFATE 2 MG/1 ML DISP.SYRIN IV PRN (04:49)
[2016-06-13] MEDS: VANCOMYCIN FOR PO/GT/NG USE PO SCH ×3 (05:01→17:33)
[2016-06-13] MEDS: NORMAL SALINE FLUSH 10 ML DISP.SYRIN IV SCH ×3 (05:01→21:46)
[2016-06-13] MEDS: MAGNESIUM OXIDE 400 MG TABLET PO SCH ×3 (05:01→17:33)
--- NOTE | 2016-06-13 06:00 | NUR ---
Patient resting in bed, in no acute distress. Daily weight done at 148.8 lbs, weight with air mattress machine is at 160lbs. On tele Atrial Flutter 120's. Will continue to monitor. Call light within reach.
[2016-06-13] MEDS: PANTOPRAZOLE SODIUM 40 MG TABLET.DR PO SCH (07:09)
--- NOTE | 2016-06-13 07:30 | NUR ---
Endorsed to day shift RN patient had no BM throughout the maintenance supervisor 2nd shift
[2016-06-13 08:00] VITALS: BP 98/60
[2016-06-13] MEDS: FOLIC ACID 1 MG TABLET PO SCH (08:21)
[2016-06-13] MEDS: LORATADINE 10 MG TABLET PO SCH (08:21)
[2016-06-13] MEDS: DIGOXIN 250 MCG TABLET PO SCH (08:22)
[2016-06-13] MEDS: Z GUARD REMEDY PASTE 57 GM TUBE TOP SCH ×2 (08:22→21:46)
[2016-06-13] MEDS: AMIODARONE HCL 200 MG TABLET PO SCH ×2 (08:22→21:43)
[2016-06-13] MEDS: BOOST PLUS 237 ML LIQUID (VERY VANILLA) PO SCH ×2 (08:23→17:34)
[2016-06-13] MEDS: MUPIROCIN 2% OINT 22 GM TUBE NS SCH ×2 (08:56→21:43)
[2016-06-13] MEDS: DOXYCYCLINE HYCLATE IV 100 MG in IV DEXTROSE 5% 100 ML IV SCH ×2 (08:57→21:46)
[2016-06-13] MEDS: METOPROLOL TARTRATE 25 MG TABLET PO SCH ×2 (09:00→21:43)
[2016-06-13] MEDS: DILTIAZEM HCL CD 240 MG CAP.SR.24H PO SCH (09:00)
[2016-06-13 09:47] LABS: CALCIUM 8.5 mg/dL (8.5-10.1); CREATININE 1.1 mg/dL (0.6-1.3); POTASSIUM 4.5 mmol/L (3.5-5.1)
[2016-06-13 15:55] VITALS: BP 117/68
[2016-06-13] MEDS: WARFARIN SODIUM 5 MG TABLET PO SCH (17:35)
--- NOTE | 2016-06-13 18:46 | NUR ---
End of shift: Pt resting and dozing off in bed with fall precautions and safety measures maintained. All needs met. DVT pumps on bilaterally. Pt stable and nad noted.
--- NOTE | 2016-06-13 21:00 | NUR ---
bp 101/70,remains in atrial flutter rate 120,metoprolol 25mg po given,continue contact isolation for positive c diff, MRSA of nares,turn and repositioning.
[2016-06-13 21:07] VITALS: BP 101/70
[2016-06-14] VITALS (15 sets, daily range): BP systolic 87–110; BP diastolic 38–74
[2016-06-14] MEDS: VANCOMYCIN FOR PO/GT/NG USE PO SCH ×5 (00:01→23:54)
--- NOTE | 2016-06-14 00:05 | NUR ---
keep patient npo for NIKOLAY in am, procedure explained, patient verbalized understanding and cooperative.Morphine 1mg iv admin for c/o back pain,effective.
[2016-06-14] MEDS: MORPHINE SULFATE 2 MG/1 ML DISP.SYRIN IV PRN (00:11)
[2016-06-14] MEDS: PANTOPRAZOLE SODIUM 40 MG TABLET.DR PO SCH (05:58)
[2016-06-14] MEDS: NORMAL SALINE FLUSH 10 ML DISP.SYRIN IV SCH ×3 (05:59→20:47)
[2016-06-14] MEDS: MAGNESIUM OXIDE 400 MG TABLET PO SCH ×5 (05:59→23:54)
--- NOTE | 2016-06-14 06:00 | NUR ---
patient slept well,atrial flutter rate 90's,no distress.
[2016-06-14] MEDS: BOOST PLUS 237 ML LIQUID (VERY VANILLA) PO SCH ×2 (08:00→17:36)
--- NOTE | 2016-06-14 08:00 | NUR ---
awake alert and oriented x 2, slow comprehending instructions given, Tele0 a flutter 90's, denies of pain, kept npo for NIKOLAY/Cardioversion this PM, mother to come at 12noon to sigh consent, isolation for mrsa nares and c diff in stool observed, condom cath in place draining yellow urine, safety measures maintained
[2016-06-14 08:33] LABS: HEMATOCRIT 34.8 % (40.0-50.0); HEMOGLOBIN 11.8 g/dL (14.0-18.0); MEAN CORPUSCULAR HGB CONC 34 g/dL (32.0-37.0); MEAN CORPUSCULAR VOLUME 79.9 fL (82.0-92.0); PLATELET COUNT (AUTO) 206 K/uL (150-450); RED BLOOD CELL COUNT(AUTO) 4.36 MIL/uL (4.70-6.10); RED CELL DISTRIBUTION WIDTH 18.5 % (11.5-14.5); WHITE BLOOD COUNT (AUTO) 11.9 K/uL (4.0-11.2)
[2016-06-14] MEDS: DILTIAZEM HCL CD 240 MG CAP.SR.24H PO SCH (08:46)
[2016-06-14] MEDS: FOLIC ACID 1 MG TABLET PO SCH (08:47)
[2016-06-14] MEDS: DIGOXIN 250 MCG TABLET PO SCH (08:47)
[2016-06-14] MEDS: AMIODARONE HCL 200 MG TABLET PO SCH ×2 (08:47→20:46)
[2016-06-14] MEDS: LORATADINE 10 MG TABLET PO SCH (08:47)
[2016-06-14] MEDS: MUPIROCIN 2% OINT 22 GM TUBE NS SCH (08:48)
[2016-06-14] MEDS: METOPROLOL TARTRATE 25 MG TABLET PO SCH ×2 (08:48→20:46)
[2016-06-14] MEDS: Z GUARD REMEDY PASTE 57 GM TUBE TOP SCH ×2 (08:49→20:47)
[2016-06-14] MEDS: DOXYCYCLINE HYCLATE IV 100 MG in IV DEXTROSE 5% 100 ML IV SCH ×2 (08:54→20:46)
[2016-06-14 09:00] LABS: ALBUMIN 2.5 g/dL (3.4-5.0); BILIRUBIN,TOTAL 0.4 mg/dL (0.2-1.0); CALCIUM 8.9 mg/dL (8.5-10.1); CREATININE 0.9 mg/dL (0.6-1.3); MAGNESIUM 1.9 mg/dL (1.8-2.4); PHOSPHOROUS 3.6 mg/dL (2.5-4.9); POTASSIUM 6.1 mmol/L (3.5-5.1); TOTAL PROTEIN, SERUM 6.5 g/dL (6.4-8.2)
[2016-06-14] MEDS ORDERED: INSULIN REGULAR, HUMAN 300 UNIT/3 ML VIAL IV ONE (09:30)
[2016-06-14] MEDS ORDERED: DEXTROSE 50% 50 ML DISP.SYRIN IV ONE (09:30)
--- NOTE | 2016-06-14 12:30 | NUR ---
mother here-consent for NIKOLAY/Cardioversion signed, pt in no distress, tele a flutter 80's
[2016-06-14 13:34] LABS: BAND % (MANUAL) 8 % (0-10); EOSINOPHILS % (MANUAL) 2 % (0-8); LYMPHOCYTES % (MANUAL) 13 % (20-40); METAMYELOCYTES % 2 % (0-1); MONOCYTES % (MANUAL) 10 % (2-10); MYELOCYTES % 3 % (0-0); NEUTROPHILS % (MANUAL) 62 % (42-75); PLATELET ESTIMATE ADEQUATE
[2016-06-14 13:35] LABS: ANISOCYTOSIS 2+; TOXIC GRANULATION 1+
[2016-06-14 13:36] LABS: HYPOCHROMASIA 1+
--- NOTE | 2016-06-14 14:35 | NUR ---
anesthesiologist here and saw pt and spoke to mother
--- NOTE | 2016-06-14 14:50 | NUR ---
transferred to CCU per bed for NIKOLAY/cardioversion
[2016-06-14] MEDS ORDERED: LIDOCAINE VISCUS 2% 15 ML UDC MM ONE (15:00)
--- NOTE | 2016-06-14 15:20 | NUR ---
with both Dr.s Perez and Dr. Jain Anesthesiologist, bench technician, RT, and primary rn in the room; time out reading consent verify and procedure started. SBP of 104, 107/73, rr18, 100% saturtion. Diprivan administered by anesthesiologist.
--- NOTE | 2016-06-14 15:36 | NUR ---
1535 patient cardioverted 200 joules x one converting to SR.
--- NOTE | 2016-06-14 16:00 | NUR ---
PT IS MORE AWAKE AND RESPOSIVE. DENIES ANY CHEST PAINS. EKG DONE AND SEEN BY DR ENRIQUE. SR WITH OCCASSIONAL PAC'S.
--- NOTE | 2016-06-14 16:20 | NUR ---
SBP STABLE 105 TO 108. PT IS ABLE TO DRINK JUICE WITHOUR ANY PROBLEM.
--- NOTE | 2016-06-14 16:40 | NUR ---
transferred to rm 212 per bed, pt awake alert but oriented x2, denies of pain, on 2l/nc 02, sat 96%, tele SR with frequent PACs, vs taken, no distress noted, call light within reach
--- NOTE | 2016-06-14 16:45 | NUR ---
REPORT GIVEN TO JEN CALLAHAN. DR JOSEPH OKEYED TO TRANSFER PT BACK TO TELE VIA BED AND WITH SAME ORDERS. NO APPARENT DISTRESS NOTED. PT IS TALKING AND MOVING ALL EXTREMETIES WELL. PT TRANSFERRED TO TELE VIA BED. CONDITION IS STABLE.
[2016-06-14] MEDS: WARFARIN SODIUM 5 MG TABLET PO SCH (17:34)
[2016-06-14] MEDS: ENOXAPARIN SODIUM 80 MG/0.8 ML DISP.SYRIN SQ SCH (17:35)
--- NOTE | 2016-06-14 18:44 | NUR ---
resting in bed, had dinner with good appetite, all needs attended and met, no distress noted, bed alarm on
[2016-06-14] MEDS ORDERED: PROPOFOL 200 MG/20 ML BOTTLE IV ONE (18:52)
--- NOTE | 2016-06-14 19:30 | NUR ---
RESTING IN BED WATCHING TV. ABLE TO MAKE NEEDS KNOWN. NO ACUTE DISTRESS NOTED AT THIS TIME. NEEDS ATTENDED. CALL LIGHT WITHIN REACH. WILL CONTINUE TO MONITOR
[2016-06-15 05:46] VITALS: BP 98/65
[2016-06-15] MEDS: MAGNESIUM OXIDE 400 MG TABLET PO SCH ×2 (05:54→12:49)
[2016-06-15] MEDS: NORMAL SALINE FLUSH 10 ML DISP.SYRIN IV SCH ×2 (05:54→14:00)
[2016-06-15] MEDS: VANCOMYCIN FOR PO/GT/NG USE PO SCH ×2 (05:55→12:49)
[2016-06-15] MEDS: ENOXAPARIN SODIUM 80 MG/0.8 ML DISP.SYRIN SQ SCH (05:56)
[2016-06-15] MEDS: ACETAMINOPHEN 325 MG TABLET PO PRN (06:03)
[2016-06-15] MEDS: PANTOPRAZOLE SODIUM 40 MG TABLET.DR PO SCH (06:03)
--- NOTE | 2016-06-15 06:32 | NUR ---
SLEPT INTERMITTENTLY DURING THE SHIFT. NO ACUTE DISTRESS NOTED. REMAINS SINUS RHYTHM WITH OCCASIONAL PACs. ALL DUE MEDS GIVEN ORDERED. SKIN CARE PROVIDED. ENCOURAGED TO TURN AND REPOSITION. NEEDS ATTENDED. CALL LIGHT WITHIN REACH
[2016-06-15 06:58] LABS: EOSINOPHILS # (AUTO) 0.1 K/uL (0.0-0.7); EOSINOPHILS % (AUTO) 0.7 % (0.0-7.0); HEMATOCRIT 32.6 % (40.0-50.0); HEMOGLOBIN 11.1 g/dL (14.0-18.0); LYMPHOCYTES # (AUTO) 1.1 K/uL (0.8-4.8); LYMPHOCYTES % (AUTO) 11.2 % (20.5-51.5); MEAN CORPUSCULAR HEMOGLOBIN 27.4 uug (27.0-31.0); MEAN CORPUSCULAR HGB CONC 34 g/dL (32.0-37.0); MEAN CORPUSCULAR VOLUME 80.4 fL (82.0-92.0); MONOCYTES # (AUTO) 0.4 K/uL (0.1-1.30); MONOCYTES % (AUTO) 4.6 % (0.0-11.0); NEUTROPHILS # (AUTO) 8.1 K/uL (1.8-8.9); NEUTROPHILS % (AUTO) 83.5 % (38.5-71.5); PLATELET COUNT (AUTO) 175 K/uL (150-450); RED BLOOD CELL COUNT(AUTO) 4.05 MIL/uL (4.70-6.10); RED CELL DISTRIBUTION WIDTH 18.8 % (11.5-14.5); WHITE BLOOD COUNT (AUTO) 9.7 K/uL (4.0-11.2)
[2016-06-15 07:13] LABS: ALBUMIN 2.4 g/dL (3.4-5.0); BILIRUBIN,TOTAL 0.4 mg/dL (0.2-1.0); CALCIUM 8.8 mg/dL (8.5-10.1); MAGNESIUM 1.9 mg/dL (1.8-2.4); PHOSPHOROUS 3.8 mg/dL (2.5-4.9); POTASSIUM 5.9 mmol/L (3.5-5.1); TOTAL PROTEIN, SERUM 6.3 g/dL (6.4-8.2)
[2016-06-15 07:17] LABS: ANISOCYTOSIS 2+; EOSINOPHILS % (MANUAL) 1 % (0-8); LYMPHOCYTES % (MANUAL) 15 % (20-40); MONOCYTES % (MANUAL) 4 % (2-10); NEUTROPHILS % (MANUAL) 80 % (42-75); PLATELET ESTIMATE ADEQUATE
--- NOTE | 2016-06-15 08:00 | NUR ---
awake alert, oriented x 2, denies of pain, tele SR 70's no dyspnea noted, sat at 100%- 02 d/cd, repositioned for breakfast, contact isolation observed, right upper PICC line intact and patent, bed alarm on, head of bed elevated
[2016-06-15] MEDS: LORATADINE 10 MG TABLET PO SCH (08:12)
[2016-06-15] MEDS: FOLIC ACID 1 MG TABLET PO SCH (08:13)
[2016-06-15] MEDS: AMIODARONE HCL 200 MG TABLET PO SCH (08:13)
[2016-06-15] MEDS: METOPROLOL TARTRATE 25 MG TABLET PO SCH (08:14)
[2016-06-15] MEDS: BOOST PLUS 237 ML LIQUID (VERY VANILLA) PO SCH (08:14)
[2016-06-15] MEDS: Z GUARD REMEDY PASTE 57 GM TUBE TOP SCH (08:14)
[2016-06-15] MEDS: DOXYCYCLINE HYCLATE IV 100 MG in IV DEXTROSE 5% 100 ML IV SCH (09:03)
[2016-06-15] MEDS ORDERED: SODIUM POLYSTYRENE SULFONATE 15 G/60 ML LIQUID UDC PO ONE (09:15)
[2016-06-15] MEDS ORDERED: INSULIN REGULAR, HUMAN 300 UNIT/3 ML VIAL IV ONE (09:15)
[2016-06-15] MEDS ORDERED: DEXTROSE 50% 50 ML DISP.SYRIN IV ONE (09:15)
[2016-06-15] MEDS ORDERED: ALBU2.5V7 NEB (10:58)
[2016-06-15] MEDS ORDERED: Folic Acid PO (10:58)
[2016-06-15] MEDS ORDERED: MENT71OI TOP (10:58)
[2016-06-15] MEDS ORDERED: ENOX80DI SQ (10:58)
[2016-06-15] MEDS ORDERED: MAGN400C PO (10:58)
[2016-06-15] MEDS ORDERED: LACT-15 PO (10:58)
[2016-06-15] MEDS ORDERED: Vancomycin Hcl PO (10:58)
[2016-06-15] MEDS ORDERED: AMIO200T6 PO (10:58)
[2016-06-15] MEDS ORDERED: LORA-114 PO (10:58)
[2016-06-15] MEDS ORDERED: WARF5TAB77 PO (10:58)
[2016-06-15] MEDS ORDERED: METO25TA6 PO (10:58)
[2016-06-15] MEDS ORDERED: PANT40TA2 PO (10:58)
--- NOTE | 2016-06-15 11:00 | NUR ---
pt is to be d/cd to [facility]- pt made aware and happy about it- "I feel good", Sacrum wound treatment done
[2016-06-15 11:43] VITALS: BP 101/59
--- NOTE | 2016-06-15 12:15 | NUR ---
mother here and informed of d/c [facility] and in agreement
--- NOTE | 2016-06-15 12:35 | NUR ---
called Faye at [facility] and report given
--- NOTE | 2016-06-15 13:30 | NUR ---
PICC line removed from right upper arm- removed easily, tip intact, no bleeding noted, no redness noted on site, pressure dsg applied. Saline lock on left forearm- no redness/swelling on site, mom at bedside
--- NOTE | 2016-06-15 14:12 | NUR ---
The patient will be discharged today back to [facility] [ ; [address] [place] [address]] via [facility]. Spoke to Kandis from [facility] and she confirmed that they will re-admit the patient and she is aware that the patient is positive for C. diff and MRSA Nares. The patient's mother is aware of his discharge back and in agreement. Her RN, Conrado, is also aware of his discharge plan and will call the facility for the report.
--- NOTE | 2016-06-15 15:03 | NUR ---
ambulance here and report given- taken per stretcher in stable condition, Mother is going with pt
== END 2016-06-15 15:05 | DRG 853 ==
LOC: ER 21:59 → CCU 06-03 00:39 → TELE 06-09 16:47 → CCU 06-14 15:00 → TELE 06-14 16:45
PROVIDERS: ADMIT Internal Medicine; ATTEND Internal Medicine
PROC: 30233N1 Transfusion of Nonautologous Red Blood Cells into Peripheral Vein, Percutaneous Approach (ICD-10-PCS; 2016-06-02)
PROC: 02HV33Z Insertion of Infusion Device into Superior Vena Cava, Percutaneous Approach (ICD-10-PCS; 2016-06-03)
PROC: 0JB70ZZ Excision of Back Subcutaneous Tissue and Fascia, Open Approach (ICD-10-PCS; principal; 2016-06-07)
PROC: 5A2204Z Restoration of Cardiac Rhythm, Single (ICD-10-PCS; 2016-06-14)
DX: A41.9 Sepsis, unspecified organism (principal); E43 Unspecified severe protein-calorie malnutrition; J69.0 Pneumonitis due to inhalation of food and vomit; I50.33 Acute on chronic diastolic (congestive) heart failure; I21.4 Non-ST elevation (NSTEMI) myocardial infarction; N17.0 Acute kidney failure with tubular necrosis; G93.40 Encephalopathy, unspecified; I26.99 Other pulmonary embolism without acute cor pulmonale; I33.0 Acute and subacute infective endocarditis; R65.21 Severe sepsis with septic shock; L89.153 Pressure ulcer of sacral region, stage 3; D61.818 Other pancytopenia; F84.0 Autistic disorder; A04.7 Enterocolitis due to Clostridium difficile; I48.92 Unspecified atrial flutter; D50.9 Iron deficiency anemia, unspecified; D75.9 Disease of blood and blood-forming organs, unspecified; F20.9 Schizophrenia, unspecified; F79 Unspecified intellectual disabilities; Z95.2 Presence of prosthetic heart valve; Z79.899 Other long term (current) drug therapy; R32 Unspecified urinary incontinence; I48.91 Unspecified atrial fibrillation; I27.2 Other secondary pulmonary hypertension; I25.2 Old myocardial infarction; I34.0 Nonrheumatic mitral (valve) insufficiency; E55.9 Vitamin D deficiency, unspecified; E53.8 Deficiency of other specified B group vitamins; D63.8 Anemia in other chronic diseases classified elsewhere; Z80.0 Family history of malignant neoplasm of digestive organs
CPT/HCPCS: 36415; 70030-TC; 70450; 71010; 71260; 72193; 74160; 82746; 82784; 83550; 83605; 83615; 83735; 84100; 84155; 84165; 84443; 85025; 85610; 85730; 86038; 86140; 86334; 86361; 86430; 86706; 86803; 86850; 86900; 86901; 86920; 87040; 87086; 87340; 87806; 93005; 93307; 93312; 97001; 97110; 97112; 97116; 97530; A4663; J0282; J0692; J1160; J1200; J1442; J1447; J1650; J1815; J1940; J1956; J2270; J2370; J2920; J3370; J3475; J3490; J7030; J7040; J7050; J7060; P9016-BL; P9021; Q9967